=== PATIENT | male | born 1955 | race Caucasian/White ===

== ENCOUNTER → 2018-03-25 | Outpatient (CLI) | payer OTHER ==
[~2018-03-25] MED LIST: CLC150 PO; TOPICAL STEROID
--- NOTE | 2018-03-25 12:22 | DIAGNOSTIC IMAGING REPORT ---
ABDOMINAL ULTRASOUND, RIGHT UPPER QUADRANT HISTORY: Generalized abdominal pain.. COMPARISON: None. FINDINGS: Pancreas: The pancreatic tail is obscured by overlying bowel gas. The remaining portions of the pancreas are within normal limits. Liver: A 6 mm cyst within the right hepatic lobe. A 3.2 x 1.9 x 1.7 cm hyperechoic lesion within the right hepatic lobe. Slight increase echogenicity within the liver consistent with mild fatty change. Gallbladder: No gallbladder wall thickening. No gallstones. A few punctate echogenic foci within the gallbladder fundus demonstrating ringdown artifact. This is consistent with adenomyomatosis. CBD: 5 mm. Right kidney: No hydronephrosis. Scarring within the lower pole. IMPRESSION: 1. Adenomyomatosis of the gallbladder fundus. Otherwise, no gallbladder wall thickening. No gallstones. 2. A 3.2 x 1.9 x 1.7 cm hyperechoic lesion within the right hepatic lobe. This is technically indeterminate by ultrasound but likely represents a hemangioma. Electronically signed by: Brian Gonzalez M.D. 03/25/2018 12:21 PM Dictated Date/Time: 03/25/2018 12:19 PM
== END | disposition home or self-care (01) ==
LOC: C.ULTRBC 11:37
PROVIDERS: ATTEND Family Medicine
DX: R10.9 Unspecified abdominal pain (principal)

== ENCOUNTER 2020-10-29 08:31 | Inpatient (IN) ==
--- OUTSIDE RECORDS SUMMARY | 2020-10-29 08:33 | External Medical Summary | Continuity of Care Document ---
:1955 Author Name Luis Fernando Fisher, Provider Address Unavailable Unavailable , Care Team Providers Name Role Phone Allen Shearer [email or web address] Problems Active medical history not documented Allergies and Adverse Reactions Allergy history not documented Medications Medications not documented Procedures Procedures not documented Immunizations Immunizations not documented Plan of Treatment Planned Observations Planned Goals not documented Results No Known Results Results not documented Encounters Appointment; Allen Shearer M.D. 02-Aug-2009 11:40 Encounter Diagnosis: Problem not documented
--- OUTSIDE RECORDS SUMMARY | 2020-10-29 08:34 | External Medical Summary | Continuity of Care Document ---
:1955 Author Name Luis Fernando Fisher, Provider Address Unavailable Unavailable , Care Team Providers Name Role Phone Allen Shearer [email or web address] Problems Active medical history not documented Allergies and Adverse Reactions Allergy history not documented Medications Medications not documented Procedures Procedures not documented Immunizations Immunizations not documented Plan of Treatment Planned Observations Planned Goals not documented Results No Known Results Results not documented Encounters Appointment; Allen Shearer M.D. 02-Aug-2009 11:40 Encounter Diagnosis: Problem not documented
--- NOTE | 2020-10-29 09:01 | Emergency Department Note ---
History of Present Illness General Chief complaint: Shortness of Breath/Dyspnea Stated complaint: SOB, CHEST PAIN Time Seen by Provider: 10/29/20 08:42 Source: patient Mode of arrival: ambulatory Limitations: no limitations History of Present Illness This patient comes in with shortness of breath and some chest heaviness. 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 His shortness of breath is primarily at night he says he wakes up short of breath and and then he will reposition self and feels better. This is been going on f or quite some time but has gotten worse. He has had a chronic cough that seems deeper and less productive than it usually was although today he coughed up some greenish-hawley stuff at one point. He has had 2 doses of the Covid vaccine with the second dose 10 days ago. He said after the second dose he did have flulike symptoms for 2 days but that is resolved. He denies any palpitations or syncope but felt a little wobbly. No chest pain but does feel heavy he says that been going on for a long time. No blood or melena stool no focal numbness or weakness except for feeling slightly weak in both his legs no acute pain or swelling. No trauma or abdominal pain. Home Medications Medication Instructions Recorded Confirmed Type aspirin 81 mg PO DAILY 10/29/20 10/29/20 History atorvastatin 10 mg PO HS 10/29/20 10/29/20 History cyanocobalamin (vitamin B-12) 1,000 mcg PO DAILY 10/29/20 10/29/20 History [Vitamin B-12] magnesium 250 mg PO DAILY 10/29/20 10/29/20 History multivitamin 1 tab PO QAM 10/29/20 10/29/20 History omega 5-rvt-mkv-fish oil [Fish Oil] 1 cap PO DAILY 10/29/20 10/29/20 History ustekinumab [Stelara] 90 mg SUBCUT .Q12WK 10/29/20 10/29/20 History vitamin B complex 1 tab PO DAILY 10/29/20 10/29/20 History Allergies Allergy/AdvReac Type Severity Reaction Status Date / Time bee venom protein (honey bee) Allergy Swelling Unverified 10/29/20 09:40 Penicillins Allergy Rash 40+ Unverified 10/29/20 09:40 years ago Past Med/Surg History Medical History (Updated 10/29/20 @ 15:03 by Pj Ornelas MD) Hyperlipidemia Hypertension Leg cramps Psoriasis On Stelara since 2016 Surgical History (Updated 10/29/20 @ 11:02 by Rc Gibson MD) History of appendectomy Social History (Updated 10/29/20 @ 11:03 by Rc Gibson MD) Smoking Status: Former smoker Age Quit Using Tobacco: 59; packs per day: 0.2; Hx Alcohol Use: No Hx Substance Use: No Preferred Language: Khmer Communication Ability: Effective 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 Review of Systems A total of 10 systems reviewed and were otherwise negative Physical Exam Vital Signs Vital Signs - 24 hr 10/29/20 08:36 10/29/20 08:54 10/29/20 09:04 Temperature 36.8 C Temperature Source Temporal Artery Scan Pulse Rate 88 Pulse Rate [Finger] 69 Pulse Rate from SpO2 Sensor Respiratory Rate 20 18 Respiratory Effort / Characteristics Non-Labored Non-Labored Non-Labored Respiratory Depth Normal Normal Respiratory Pattern Regular Blood Pressure 166/131 H Blood Pressure [Right Arm] 178/102 H Blood Pressure Mean 142 Blood Pressure Mean [Right Arm] 127 Blood Pressure Position Sitting Pulse Oximetry 95 96 95 Oxygen Delivery Method Room Air Room Air Room Air Sepsis Recent Fever Within 48 Hours No Sepsis New/Unexplained Change in Mental Status No Sepsis Action Taken by Nursing No Action Required 10/29/20 09:43 10/29/20 11:07 10/29/20 11:12 Temperature Temperature Source Pulse Rate 69 Pulse Rate [Finger] 69 Pulse Rate from SpO2 Sensor 73 Respiratory Rate 16 22 Respiratory Effort / Characteristics Respiratory Depth Respiratory Pattern Blood Pressure 212/147 H Blood Pressure [Right Arm] 147/99 H 203/134 H Blood Pressure Mean 168 Blood Pressure Mean [Right Arm] 115 157 Blood Pressure Position Pulse Oximetry 94 96 Oxygen Delivery Method Sepsis Recent Fever Within 48 Hours Sepsis New/Unexplained Change in Mental Status Sepsis Action Taken by Nursing General: Well developed well nourished middle-age male who appears in no acute distress, breathing comfortably on room air. Normal speech HEENT: Normal cephalic atraumatic. Pupils are equal round and reactive to light. Extraocular movements are intact. Oropharynx is pink with moist mucous membranes. No swelling of the mouth lips or tongue. Neck: Supple with a midline trachea. No meningeal signs or stiffness, no JVD or bruits. No Stridor. Chest: Clear to auscultation bilaterally. No wheezes or rhonchi. No increased work of breathing. Heart: Regular rate and rhythm without murmurs or gallops. Abdomen: Soft nontender, nondistended without rebound guarding or rigidity. Extremities: No cyanosis clubbing or edema. No calf tenderness or assymetry Spine/Back. Non tender to palpation. No CVA tenderness Skin: Good turgor without rashes. Neurologic exam: Cranial nerves two through 12 are intact. Motor and sensation are intact and symmetrical throughout. Course Administered Medications Discontinued Medications Aspirin (Aspirin Chew 324 Mg) Confirm Administered Dose 324 mg .ROUTE .STK-MED ONE Stop: 10/29/20 13:55 Last Admin: 10/29/20 14:04 Dose: 324 mg Documented by: [id number] Carvedilol (Carvedilol 3.125 Mg Tab) Confirm Administered Dose 3.125 mg .ROUTE .STK-MED ONE Stop: 10/29/20 13:55 Last Admin: 10/29/20 14:08 Dose: 3.125 mg Documented by: [id number] Furosemide (Furosemide 40 Mg/4 Ml Vial) 2 mg IV NOW STA Stop: 10/29/20 13:23 Last Admin: 10/29/20 14:28 Dose: Not Given Documented by: [id number] Furosemide (Furosemide 40 Mg/4 Ml Vial) Confirm Administered Dose 40 mg IV .STK- MED ONE Stop: 10/29/20 13:56 Last Admin: 10/29/20 14:08 Dose: 20 mg Documented by: [id number] Heparin Sodium (Porcine) (Heparin Sod (Porcine) 1000 Unit/Ml 10 Ml Vial) Confirm Administered Dose 10,000 units .ROUTE .STK-MED ONE Stop: 10/29/20 13:56 Last Admin: 10/29/20 14:06 Dose: 4,000 units Documented by: [id number] Cosigned by: [id number] Heparin Sodium/Dextrose (Heparin 19007 Unit/500 Ml D5w) Confirm Administered Dose 25,000 units IV .STK-MED ONE Stop: 10/29/20 13:55 Last Admin: 10/29/20 14:05 Dose: 1,000 units Documented by: [id number] Cosigned by: [id number] Magnesium Sulfate/Dextrose (Magnesium Sulfate / D5w) 1 gm in 100 mls @ 100 mls/hr IV NOW STA Stop: 10/29/20 11:08 Last Infusion: 10/29/20 11:17 Dose: 0 mls/hr Documented by: [id number] Admin: 10/29/20 10:16 Dose: 100 mls/hr Documented by: [id number] Ioversol (Optiray 320 125ml) 120 ml IV ONCE ONE Stop: 10/29/20 11:44 Last Admin: 10/29/20 11:43 Dose: 120 ml Documented by: [id number] Medical Decision Making Differential Diagnosis Acute coronary syndrome, arrhythmia, PE, CHF, pneumonia, bronchitis, sepsis, Covid, electrolyte or metabolic abnormality, GERD, anxiety Medical Records Attestation: I reviewed the patient's medical records. Home Medications Current Medication List: was personally reviewed by me Laboratory Data Attestation: I reviewed the patient's lab results. Result diagrams: 10/29/20 09:00 10/29/20 09:00 Lab Results 10/29/20 10/29/20 10/29/20 Range/Units 09:00 09:00 09:00 WBC 10.65 (4.8-10.8) K/uL RBC 5.44 (4.7-6.1) M/uL Hgb 16.2 (14.0-18.0) g/dL Hct 46.0 (42-52) % MCV 84.6 (80-100) fL MCH 29.8 (25-34) pg MCHC 35.2 (32-36) g/dL RDW Std Deviation 41.5 (36.4-46.3) fL RDW Coeff of Jamshid 13.5 (11.5-14.5) % Plt Count 288 (130-400) K/uL MPV 10.5 H (7.4-10.4) fL Immature Gran % (Auto) 0.2 % Neut % (Auto) 62.6 % Lymph % (Auto) 27.3 % [place] % (Auto) 7.0 % Eos % (Auto) 2.4 % Baso % (Auto) 0.5 % Neut # (Auto) 6.66 H (1.4-6.5) K/uL Lymph # (Auto) 2.91 (1.2-3.4) K/uL [place] # (Auto) 0.75 H (0.11-0.59) K/uL Eos # (Auto) 0.26 (0-0.5) K/uL Baso # (Auto) 0.05 (0-0.2) K/uL Immature Gran # (Auto) 0.02 (0.00-0.02) K/uL PT (9.0-12.0) Seconds INR (0.9-1.1) APTT (21.0-31.0) Seconds PTT Ratio D-Dimer 550 H* (0-500) ug/L FEU Sodium 140 (136-145) mmol/L Potassium 4.2 (3.5-5.1) mmol/L Chloride 109 H (98-107) mmol/L Carbon Dioxide 22 (21-32) mmol/L Anion Gap 9.0 (3-11) BUN 23 H (7-18) mg/dl Creatinine 1.18 (0.6-1.4) mg/dl Est Cr Clr Drug Dosing 89.5 ml/min Est GFR ( Amer) 74.1 Est GFR (Non-Af Amer) 63.9 BUN/Creatinine Ratio 19.2 (10-20) Glucose 153 H (70-99) mg/dl Calcium 8.7 (8.5-10.1) mg/dl Magnesium (1.8-2.4) mg/dl Total Bilirubin 2.0 H (0.2-1) mg/dl AST 15 (15-37) U/L ALT 30 (12-78) U/L Alkaline Phosphatase 57 (45-117) U/L Troponin I 0.060 H* (0-0.045) ng/ml NT-Pro-B Natriuret Pep 2378 H (0-900) pg/ml Total Protein 7.8 (6.4-8.2) gm/dl Albumin 3.8 (3.4-5.0) gm/dl Globulin 4.0 (2.5-4.0) gm/dl Albumin/Globulin Ratio 1.0 (0.9-2) Lipase 80 (73-393) U/L TSH (0.300-4.500) uIu/ml COVID-19 Eval Order SARS-CoV-2, RNA, NAAT (NEGATIVE) 10/29/20 10/29/20 10/29/20 Range/Units 09:00 09:32 11:08 WBC (4.8-10.8) K/uL RBC (4.7-6.1) M/uL Hgb (14.0-18.0) g/dL Hct (42-52) % MCV (80-100) fL MCH (25-34) pg MCHC (32-36) g/dL RDW Std Deviation (36.4-46.3) fL RDW Coeff of Jamshid (11.5-14.5) % Plt Count (130-400) K/uL MPV (7.4-10.4) fL Immature Gran % (Auto) % Neut % (Auto) % Lymph % (Auto) % [place] % (Auto) % Eos % (Auto) % Baso % (Auto) % Neut # (Auto) (1.4-6.5) K/uL Lymph # (Auto) (1.2-3.4) K/uL [place] # (Auto) (0.11-0.59) K/uL Eos # (Auto) (0-0.5) K/uL Baso # (Auto) (0-0.2) K/uL Immature Gran # (Auto) (0.00-0.02) K/uL PT 11.1 (9.0-12.0) Seconds INR 1.1 (0.9-1.1) APTT 24.5 (21.0-31.0) Seconds PTT Ratio 0.9 D-Dimer (0-500) ug/L FEU Sodium (136-145) mmol/L Potassium (3.5-5.1) mmol/L Chloride (98-107) mmol/L Carbon Dioxide (21-32) mmol/L Anion Gap (3-11) BUN (7-18) mg/dl Creatinine (0.6-1.4) mg/dl Est Cr Clr Drug Dosing ml/min Est GFR ( Amer) Est GFR (Non-Af Amer) BUN/Creatinine Ratio (10-20) Glucose (70-99) mg/dl Calcium (8.5-10.1) mg/dl Magnesium 2.2 (1.8-2.4) mg/dl Total Bilirubin (0.2-1) mg/dl AST (15-37) U/L ALT (12-78) U/L Alkaline Phosphatase (45-117) U/L Troponin I 0.068 H* (0-0.045) ng/ml NT-Pro-B Natriuret Pep (0-900) pg/ml Total Protein (6.4-8.2) gm/dl Albumin (3.4-5.0) gm/dl Globulin (2.5-4.0) gm/dl Albumin/Globulin Ratio (0.9-2) Lipase (73-393) U/L TSH (0.300-4.500) uIu/ml COVID-19 Eval Order SARS-CoV-2, RNA, NAAT (NEGATIVE) 10/29/20 10/29/20 10/29/20 Range/Units 11:08 11:10 11:10 WBC (4.8-10.8) K/uL RBC (4.7-6.1) M/uL Hgb (14.0-18.0) g/dL Hct (42-52) % MCV (80-100) fL MCH (25-34) pg MCHC (32-36) g/dL RDW Std Deviation (36.4-46.3) fL RDW Coeff of Jamshid (11.5-14.5) % Plt Count (130-400) K/uL MPV (7.4-10.4) fL Immature Gran % (Auto) % Neut % (Auto) % Lymph % (Auto) % [place] % (Auto) % Eos % (Auto) % Baso % (Auto) % Neut # (Auto) (1.4-6.5) K/uL Lymph # (Auto) (1.2-3.4) K/uL [place] # (Auto) (0.11-0.59) K/uL Eos # (Auto) (0-0.5) K/uL Baso # (Auto) (0-0.2) K/uL Immature Gran # (Auto) (0.00-0.02) K/uL PT (9.0-12.0) Seconds INR (0.9-1.1) APTT (21.0-31.0) Seconds PTT Ratio D-Dimer (0-500) ug/L FEU Sodium (136-145) mmol/L Potassium (3.5-5.1) mmol/L Chloride (98-107) mmol/L Carbon Dioxide (21-32) mmol/L Anion Gap (3-11) BUN (7-18) mg/dl Creatinine (0.6-1.4) mg/dl Est Cr Clr Drug Dosing ml/min Est GFR ( Amer) Est GFR (Non-Af Amer) BUN/Creatinine Ratio (10-20) Glucose (70-99) mg/dl Calcium (8.5-10.1) mg/dl Magnesium (1.8-2.4) mg/dl Total Bilirubin (0.2-1) mg/dl AST (15-37) U/L ALT (12-78) U/L Alkaline Phosphatase (45-117) U/L Troponin I (0-0.045) ng/ml NT-Pro-B Natriuret Pep (0-900) pg/ml Total Protein (6.4-8.2) gm/dl Albumin (3.4-5.0) gm/dl Globulin (2.5-4.0) gm/dl Albumin/Globulin Ratio (0.9-2) Lipase (73-393) U/L TSH 0.890 (0.300-4.500) uIu/ml COVID-19 Eval Order Covid19 IDNow [facility] SARS-CoV-2, RNA, NAAT NEGATIVE (NEGATIVE) Imaging Data Attestation: I personally reviewed and interpreted this imaging study as follows: My Impression: Chest x-raycardiomegaly but no acute infiltrate, failure, pneumothorax seen Radiologist's Impression: XR chest 1V portable CLINICAL HISTORY: Atypical chest pain. COMPARISON STUDY: No previous studies for comparison. FINDINGS: Lung volumes are normal. There is no pneumothorax or pleural effusion. There is no consolidation or evidence for pulmonary edema. Mild cardiomegaly is noted. IMPRESSION: No acute cardiopulmonary findings. Mild cardiomegaly. CT ANGIOGRAPHY OF THE CHEST, PULMONARY EMBOLUS PROTOCOL CLINICAL HISTORY: Cough. Shortness of breath. COMPARISON STUDY: Chest radiograph October 29, 2020 at 9:31 AM. TECHNIQUE: Following IV administration of 120 mL of Optiray-320, helical axial images of the chest were obtained utilizing the pulmonary embolus protocol. Maximal intensity projections and sagittal and coronal reformats were viewed on an independent 3D workstation. IV contrast was administered without complication. Automated exposure control was utilized for the study. A dose lowering technique was utilized adhering to the principles of ALARA. CT DOSE: 964.39 mGy.cm FINDINGS: No pulmonary emboli are identified although the segmental and subsegmental pulmonary arteries within the lower lobes are suboptimally assessed opacified on this exam. Mild to moderate cardiomegaly is noted. There is no pericardial effusion. There is no pneumothorax. There are small bilateral pleural effusions. Interlobular septal thickening is noted. There is mild bronchial wall thickening. There is no consolidation to suggest pneumonia. Central airways are patent. There are several mildly enlarged mediastinal lymph nodes. Index subcarinal lymph node measures 1.3 cm in short axis diameter. No prominent bilateral hilar lymph nodes. No suspicious lesions or acute fractures are identified within visualized portions of the bony thorax. IMPRESSION: 1. No pulmonary emboli identified although segmental and subsegmental lower lobe pulmonary arteries suboptimally assessed on this exam. 2. Cardiomegaly with interstitial pulmonary edema. Small bilateral pleural effusions. 2. Several mildly enlarged mediastinal lymph nodes and prominent bilateral hilar lymph nodes. These are nonspecific but may be related to pulmonary edema. ECG Data Attestation: I personally reviewed and interpreted this ECG as follows: Indication: + SOB/dyspnea Rate (beats per minute): 90 Rhythm: + normal sinus ECG Intervals/blocks: + Normal QRS, + Prolonged QT and + Normal ND ECG Duff: + Normal ECG ST segments: + Nonspecific ST abnormalities ECG Findings: + PVCs (Frequent PVCs with some consecutive PVCs) Comparison ECG Date: no prior available Additional Comments: EKG #2. Normal sinus rhythm with frequent PVCs. The T wave now has nonspecific changes and QT interval slightly decreased compared to EKG #1 MDM Narrative This patient comes in after having a chronic cough that is gotten worse as well as waking up short of breath at night he is also had some chest pressure a lot of this sounds like is been going on chronically but has gotten worse. His initial blood pressure in triage was elevated however the rest of his vital signs are normal. He looks well at present and has minimal symptoms. IV access was established, chest x-ray ,EKG and multiple blood testing was obtained. I do not think Covid is likely as he has had both vaccines and that ut has been 10 days. His EKG does not show any definite ischemic changes however he does have frequent ectopy, including several ectopic beats in a row. Chest x-ray shows cardiomegaly but no overt CHF. His troponin was elevated. He does have a prolonged QT and given his ectopy, I did give him magnesium 1 g IV. His serum mag did come back at 2.2. With his elevated troponin and his ectopy I do think he needs to be admitted for further cardiac evaluation and monitoring. We also did do a CTA of his chest and there is no evidence of PE. This was done given his symptoms and the fact that his D-dimer was mildly elevated at 550. I have consulted the [facility] hospitalist to see him in the ER for these measures. Continuous cardiac monitoring: An order was placed in EMR for continuous cardiac monitoring. The patient was noted to be in normal sinus rhythm with a pulse of 85 and frequent ectopy. Impression & Plan Chest pain, Elevated troponin, Ventricular ectopy, Prolonged Q-T interval on ECG Discharge Plan Visit Data Chief Complaint: Shortness of Breath/Dyspnea Stated Complaint: SOB, CHEST PAIN ED Provider: Pj Ornelas Discharge Problem: Chest pain, Elevated troponin, Ventricular ectopy, Prolonged Q-T interval on ECG Patient Disposition: Admitted As Inpatient Discharge Instructions Interventions: ED Discharge Assessment Last Done: 10/29/20 14:28 Discharge Problem: Chest pain Qualifiers: Chest pain type: precordial pain Qualified Code(s): R07.2 - Precordial pain
[2020-10-29 09:09] LABS: Basophils # (auto) 0.05 K/uL (0-0.2); Basophils % (auto) 0.5 %; Eosinophils # (auto) 0.26 K/uL (0-0.5); Eosinophils % (auto) 2.4 %; Hemoglobin 16.2 g/dL (14.0-18.0); Immature Granulocytes # (auto) 0.02 K/uL (0.00-0.02); Immature Granulocytes % (auto) 0.2 %; Lymphocytes # (auto) 2.91 K/uL (1.2-3.4); Lymphocytes % (auto) 27.3 %; Mean Corpuscular Hemoglobin 29.8 pg (25-34); Mean Corpuscular Hgb Conc 35.2 g/dL (32-36); Mean Corpuscular Volume 84.6 fL (80-100); Mean Platelet Volume 10.5 fL (7.4-10.4); Monocytes # (auto) 0.75 K/uL (0.11-0.59); Neutrophils # (auto) 6.66 K/uL (1.4-6.5); Neutrophils % (auto) 62.6 %; Platelet Count 288 K/uL (130-400); RDW Coefficient of Variation 13.5 % (11.5-14.5); RDW Standard Deviation 41.5 fL (36.4-46.3); Red Blood Count 5.44 M/uL (4.7-6.1); White Blood Count 10.65 K/uL (4.8-10.8)
[2020-10-29 09:27] LABS: Albumin Level 3.8 gm/dl (3.4-5.0); BUN Creatinine Ratio 19.2 (10-20); Calcium 8.7 mg/dl (8.5-10.1); Creatinine Clr Calc Pharmacy 89.5 ml/min; Est GFR (African American) 74.1; Est GFR (Non-African American) 63.9; Potassium 4.2 mmol/L (3.5-5.1)
[2020-10-29 09:50] LABS: Total Protein 7.8 gm/dl (6.4-8.2); Troponin I 0.06 ng/ml (0-0.045)
--- NOTE | 2020-10-29 09:56 | XRay Report ---
XR chest 1V portable CLINICAL HISTORY: Atypical chest pain. COMPARISON STUDY: No previous studies for comparison. FINDINGS: Lung volumes are normal. There is no pneumothorax or pleural effusion. There is no consolid ation or evidence for pulmonary edema. Mild cardiomegaly is noted. IMPRESSION: No acute cardiopulmonary findings. Mild cardiomegaly. ACT 112: Negative or not required by law. Electronically signed by: Danie Moyer M.D. 10/29/2020 9:55 AM
[2020-10-29] MEDS ORDERED: MAGNESIUM SULFATE / D5W 1 GM/100 ML BAG IV STA (10:09)
[2020-10-29 10:20] LABS: D Dimer 550 ug/L FEU (0-500)
--- NOTE | 2020-10-29 10:51 | History & Physical Report ---
Date of Service October 29, 2020 Assessment & Plan (1) NSVT (nonsustained ventricular tachycardia): 4 beat run in ER with frequent PVCs ? Symptomatic with palpitations, chest heaviness and shortness of breath. No syncope or presyncope. TTE Trend troponin Lipid panel and HbA1c with a.m. labs Magnesium level pending. Potassium 4.2. Observe on telemetry due to concurrent elevated troponin with nonspecific T wave abnormalities in lateral leads. Consult cardiology (2) Atypical chest pain: Elevated D-dimer with chest pain worse on inspiration. CT for PE to rule this out. Elevated troponin therefore trend this overnight. Repeat troponin and TTE now to assess need for acute coronary syndrome treatment. (3) Shortness of breath: As above for chest pain (4) Elevated troponin: As above (5) Hyperlipidemia: Continue atorvastatin 10 mg p.o. at bedtime (6) Psoriasis: Continue Stelara as an outpatient. (7) DVT prophylaxis: SCDs pending negative CT for PE as above. 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 Unclear exact history as he has had some degree of shortness of breath, cough and chest heaviness for many years which she is put down to his prior smoking history. However, he notes increasing shortness of breath especially at night or on lying flat getting progressively worse over the last month. Associated chest heaviness for the last 2 weeks also getting progressively worse to the point where it is now interrupting his sleep. Usually he waits while and is able to get back to sleep however this morning his breathing was much worse while lying down with associated palpitations therefore his recommended he goes to the ER. He has been concerned about Covid and checks his O2 sats regularly over the last week which have been normal. He routinely works out at the [facility] for around 30 minutes of cardio training - last went 5 days ago without any worsening of his chest heaviness or shortness of breath, he feels what ever shortness of breath he does have is related to wearing a mask. He notes possible history of QT prolongation on a routine EKG taken as part of his snf physical however he was not started on any treatment for this. Notably received Moderna vaccine with low-grade temperature and generalized fatigue after the second dose 10 days ago. Allergies Allergy/AdvReac Type Severity Reaction Status Date / Time bee venom protein (honey bee) Allergy Swelling Unverified 10/29/20 09:40 Penicillins Allergy Rash 40+ Unverified 10/29/20 09:40 years ago Home Medications Medication Instructions Recorded Confirmed Type aspirin 81 mg PO DAILY 10/29/20 10/29/20 History atorvastatin 10 mg PO HS 10/29/20 10/29/20 History cyanocobalamin (vitamin B-12) 1,000 mcg PO DAILY 10/29/20 10/29/20 History [Vitamin B-12] magnesium 250 mg PO DAILY 10/29/20 10/29/20 History multivitamin 1 tab PO QAM 10/29/20 10/29/20 History omega 8-onu-lrf-fish oil [Fish Oil] 1 cap PO DAILY 10/29/20 10/29/20 History ustekinumab [Stelara] 90 mg SUBCUT .Q12WK 10/29/20 10/29/20 History vitamin B complex 1 tab PO DAILY 10/29/20 10/29/20 History Past Med/Surg History Medical History Hyperlipidemia Hypertension Leg cramps Psoriasis On Stelara since 2016 Surgical History History of appendectomy Social History Smoking Status: Former smoker Age Quit Using Tobacco: 59; packs per day: 0.2; Hx Alcohol Use: No Hx Substance Use: No Preferred Language: Sammarinese Communication Ability: Effective Test And Turn Up Technician Required: No Beliefs That Will Affect Care: None Current Living Situation: Spouse Feels Safe at Home: Yes Assistive Devices: None Review of Systems Review of Systems: All systems reviewed & are unremarkable except as noted in HPI & below Physical Exam Constitutional: WD/WN, vitals as above + obese Eyes: + anicteric sclerae; normal pupil size ENMT: external ear and nose normal, oropharynx normal Neck: trachea midline, no thyromegaly Respiratory: normal respiratory effort; no respiratory distress Auscult ation: + crackles (Bibasal fine); no wheezes Cardiovascular: Rate/Rhythm: regular rate and regular rhythm (Frequent skipped beats) Heart Sounds: no murmur Vessels: no JVD Extremities: normal capillary refill and + pedal edema (Trace ankles bilaterally); no calf tenderness Gastrointestinal (Abdomen): normal bowel sounds, soft, nontender, no hepatosplenomegaly Musculoskeletal: no cyanosis or clubbing, extremities motor strength 5/5 Skin: no rashes, warm and dry Neurologic: moves all extremities and awake; not confused Psychiatric: A+Ox3, euthymic affect Results & Data Results & Data ([facility]) Vital Signs (Past 12 Hours) Vital Signs Temp Pulse Pulse Resp BP BP Pulse Ox 10/29/20 09:43 69 16 147/99 H 94 10/29/20 09:04 69 18 178/102 H 95 10/29/20 08:54 96 10/29/20 08:36 36.8 C 88 20 166/131 H 95 Diagnostic Findings XR chest 1V portable IMPRESSION: No acute cardiopulmonary findings. Mild cardiomegaly. Medications Administered ER medications given: Magnesium sulfate 1 g IV ECG Indication: chest pain Rate (beats per minute): 69 Rhythm: normal sinus Findings: + other (T wave flattening in lateral leads) and + PVC (Multiple with different morphologies with 6 beat run of ventricular tachycardia) Comparison ECG Date: no prior available Additional Comments: Repeat EKG showing T wave flattening throughout without ST changes. Frequent but less PVCs than previous EKG. Code Status & VTE Plan Code Status Full VTE Prophylaxis Plan VTE Prophylaxis will be ordered: Yes PG Care Time/CCT Total # of Minutes Spent Total Time Spent with Patient: Total time spent is greater than 50% in coordination of care (as documented) at patient's floor/unit and/or counseling patient: Coding Level of Care Code 83839 OBS Care - Level 3 Diagnoses NSVT (nonsustained ventricular tachycardia) I47.2 Atypical chest pain R07.89 Shortness of breath R06.02 Elevated troponin R77.8 Hyperlipidemia E78.5 Psoriasis L40.9 DVT prophylaxis Z29.9
[2020-10-29 11:10] LABS: INR 1.1 (0.9-1.1); Partial Thromboplastin Ratio 0.9; Partial Thromboplastin Time 24.5 Seconds (21.0-31.0); Prothrombin Time 11.1 Seconds (9.0-12.0)
[2020-10-29] MEDS ORDERED: OPTIRAY 320 125ml IV ONE (11:43)
--- NOTE | 2020-10-29 12:11 | CT Scan Report ---
CT ANGIOGRAPHY OF THE CHEST, PULMONARY EMBOLUS PROTOCOL CLINICAL HISTORY: Cough. Shortness of breath. COMPARISON STUDY: Chest radiograph October 29, 2020 at 9:31 AM. TECHNIQUE: Following IV administration of 120 mL of Optiray-320, helical axial images of the chest we re obtained utilizing the pulmonary embolus protocol. Maximal intensity projections and sagittal and coronal reformats were viewed on an independent 3D workstation. IV contrast was administered withou t complication. Automated exposure control was utilized for the study. A dose lowering technique wa s utilized adhering to the principles of ALARA. CT DOSE: 964.39 mGy.cm FINDINGS: No pulmonary emboli are identified although the segmental and subsegmental pulmonary arter ies within the lower lobes are suboptimally assessed opacified on this exam. Mild to moderate cardiom egaly is noted. There is no pericardial effusion. There is no pneumothorax. There are small bilateral pleural effusions. Interlobular septal thickening is noted. There is mild bronchial wall thickening. There is no consolidation to suggest pneumonia. Central airways are patent. There are several mildly enlarged mediastinal lymph nodes. Index subcarinal lymph node measures 1.3 cm in short axis diameter . No prominent bilateral hilar lymph nodes. No suspicious lesions or acute fractures are identified w ithin visualized portions of the bony thorax. IMPRESSION: 1. No pulmonary emboli identified although segmental and subsegmental lower lobe pulmonary arteries s uboptimally assessed on this exam. 2. Cardiomegaly with interstitial pulmonary edema. Small bilateral pleural effusions. 2. Several mildly enlarged mediastinal lymph nodes and prominent bilateral hilar lymph nodes. These a re nonspecific but may be related to pulmonary edema. ACT 112: Negative or not required by law. Electronically signed by: Danie Moyer M.D. 10/29/2020 12:10 PM
[2020-10-29] MEDS ORDERED: ASPIRIN CHEW 324 MG PO STA (13:19)
[2020-10-29] MEDS ORDERED: FUROSEMIDE 40 MG/4 ML VIAL IV STA ×2 (13:22)
--- NOTE | 2020-10-29 13:38 | Pre Anesthesia Assessment ---
Date of Service October 29, 2020 Pre Sedation Assessment Vital Signs Temp Pulse Pulse Resp BP BP Pulse Ox 10/29/20 12:01 65 13 168/117 H 96 10/29/20 11:32 75 24 138/107 H 95 10/29/20 11:12 203/134 H 10/29/20 11:07 69 22 212/147 H 96 10/29/20 09:43 69 16 147/99 H 94 10/29/20 09:04 69 18 178/102 H 95 10/29/20 08:54 96 10/29/20 08:36 36.8 C 88 20 166/131 H 95 Cardiovascular + regular rate Respiratory normal respiratory effort, lungs clear to auscultation Pre-Sedation Airway Assessment Smoking Status: Former smoker Mallampati Class: II ASA: ASA3 NPO Status Date of Last Intake of Fluids: 10/29/20 Time of Last Intake of Fluids: 06:00 Date of Last Intake of Solid Food: 10/28/20 Time of Last Intake of Solid Foods: 20:00 Procedure Planning Contraindications for Sedation: none Current Medications Reviewed: Yes Notes The planned sedation has been discussed with the patient. Informed Consent was obtained. I have identified the patient, determined the appropriateness of sedation and have assessed the patient immediately prior to the procedure. All medicine(s) and interventions are by my order.
--- NOTE | 2020-10-29 13:51 | Cardiology Consultation ---
Date of Consultation October 29, 2020 Assessment & Plan (1) Acute coronary syndrome: (2) Cardiomyopathy: (3) NSVT (nonsustained ventricular tachycardia): (4) Hyperlipidemia: (5) Hypertension: (6) Acute systolic CHF (congestive heart failure): ASSESSMENT/PLAN: 1. Acute coronary syndrome: Symptoms concerning for crescendo angina with acute coronary syndrome this morning. Reduced LV systolic function noted on echo. Currently chest pain-free. Recommend full-dose aspirin, heparin drip, beta- magdiel, blood pressure control, high-intensity statin therapy. Recommended cardiac catheterization. Risks and benefits were discussed with him in detail. He was made aware that CT surgery is not available at this facility. Offered to discuss this with his as well but he prefers to do this via telephone himself. Catheterization is not emergent as he is currently angina free. 2. Cardiomyopathy: Presumably ischemic based on presentation. Starting carvedilol now. Would recommend Entresto vs lisinopril as well. Will start with lisinopril today but if LV systolic function remains reduced despite revascularization, if indicated, would then advocate for Entresto in place of EVELIN-inhibitor. Mildly hypervolemic on exam. Will likely evaluate filling pressures during cardiac catheterization. 3. Nonsustained ventricular tachycardia: Beta-magdiel as noted. Ischemic evaluation as above. 4. Hypertension: Blood pressure uncontrolled. Starting carvedilol. Recommend diuretic. Will start lisinopril given above cardiac issues. 5. Dyslipidemia: Recommend high-intensity statin therapy. 6. Acute systolic CHF: He appears mildly hypervolemic. Recommend dose of Lasix now. Low-sodium diet. Daily weights. Strict I&Os. 7. Disposition: Cardiology will continue to follow. Plan of care discussed with Dr. Gibson of the primary hospitalist service. Thank you for allowing me to participate in the care of your patient. Please call for any other questions or concerns. Sincerely, Cole Rea M.D. History of Present Illness Reason for Consultation: Frequent PVCs, shortness of breath, chest pain, nonsustained ventricular tachycardia Requesting Physician: Dr. Gibson Attending Physician: Dr. Gibson History of Present Illness Mr. Zaman is a very pleasant 65-year-old gentleman with a history significant for hypertension, dyslipidemia, and psoriasis. He presented to [facility] on 10/29/2020 due to chest discomfort and shortness of breath. He has had chest pain chronically for several years occurring intermittently but the chest pain has been different over the past month. Over the past 1 month, he has been having increasingly worsening and more significant chest discomfort described as a buzzing sensation throughout his chest and dyspnea with exertion. Symptoms only occur with exertion. He continued to exercise 5-6 days per week for 30 minutes at a time including a recumbent bicycle. He would notice the symptoms while exercising but was able to work through them and continue with his workout. He had been exercising more strenuously prior to the COVID-19 pandemic (spin classes). Today however his symptoms change. With light exertion around his home, he had worsening chest discomfort and shortness of breath. Symptoms resolved with rest. He called his PCP who urged him to seek a emergency department care. He is currently chest pain-free and denies shortness of breath. He has noted however that he has been experiencing paroxysmal nocturnal dyspnea over the past several weeks. He would wake up in the middle the night short of breath which would improve with repositioning or after sitting upright briefly. He denies orthopnea when first getting in the bed. He has chronic ankle swelling without any significant worsening recently. He has a chronic cough for years. He has received his second COVID-19 vaccine approximately 10 days ago. He felt unwell 2 days following and more significantly ill the third day but the symptoms have since resolved. He has not had any recent fever. No reported syncope, palpitations, or bleeding. At home, he watches his heart rate and oxygen saturation with a pulse oximeter. His heart rate is typically in the 60s but he has noted at times that his heart rate would increase into the mid 70s and he would feel this. While here, he was noted have PVCs and short runs of nonsustained ventricular tachycardia. His initial troponin was 0.06 and then increased to 0.068. He underwent CTA chest which was negative for PE. Review of systems: As above. Review of systems otherwise negative/unremarkable. Family history: No known premature CAD. Social history: He quit smoking in 2018. Previously, he had smoked 1 pack per day for 10 years, quit briefly and then 0.5 pack per day for 10 years, and then 1 pack per week for 5-7 years. He drinks approximately 1 beer per day. No drugs. Lives at home with his second . x1. Four stepdaughters. Two biologic children (son and daughter). 2 grandsons. 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 He was unaccompanied today in the ER. Allergies Allergy/AdvReac Type Severity Reaction Status Date / Time bee venom protein (honey bee) Allergy Swelling Unverified 10/29/20 09:40 Penicillins Allergy Rash 40+ Unverified 10/29/20 09:40 years ago Home Medications Medication Instructions Recorded Confirmed Type aspirin 81 mg PO DAILY 10/29/20 10/29/20 History atorvastatin 10 mg PO HS 10/29/20 10/29/20 History cyanocobalamin (vitamin B-12) 1,000 mcg PO DAILY 10/29/20 10/29/20 History [Vitamin B-12] magnesium 250 mg PO DAILY 10/29/20 10/29/20 History multivitamin 1 tab PO QAM 10/29/20 10/29/20 History omega 0-ypk-oqq-fish oil [Fish Oil] 1 cap PO DAILY 10/29/20 10/29/20 History ustekinumab [Stelara] 90 mg SUBCUT .Q12WK 10/29/20 10/29/20 History vitamin B complex 1 tab PO DAILY 10/29/20 10/29/20 History Patient History Medical History (Updated 10/29/20 @ 13:57 by João Rea MD) Hyperlipidemia Hypertension Leg cramps Psoriasis On Stelara since 2015 Surgical History (Updated 10/29/20 @ 11:02 by Rc Gibson MD) History of appendectomy Social History (Updated 10/29/20 @ 11:03 by Rc Gibson MD) Smoking Status: Former smoker Age Quit Using Tobacco: 59; packs per day: 0.2; Do You Dip or Chew Tobacco: No; Hx Alcohol Use: Yes Alcohol type: beer Alcohol Intake Frequency: 4 or More x per/Week Alcohol Intake Frequency Comment: 1 beer/day Hx Substance Use: No Feels Safe at Home: Yes Physical Exam Physical Exam: Gen.: No acute distress. Alert and oriented. HEENT: Anicteric sclera. Neck: Mild JVD JVD. No bruits. Normal carotid upstrokes bilaterally. Cardiac: PMI was nonpalpable. No ventricular heave. Regular with ectopy. Normal S1-S2. No murmurs, rubs, or gallops. Pulmonary: Clear to auscultation bilaterally without wheezes, rales, or rhonchi. Abdomen: Soft, nontender, nondistended, with normoactive bowel sounds. No bruits noted. Extremities: 2+ radial pulses bilaterally. 2+ posterior tibialis pulses bilaterally. Trace to 1+ bilateral lower extremity edema. No cyanosis. No palpable cords. Psychiatric: Affect appears appropriate. Results & Data ([facility]) Vital Signs (Past 12 Hours) Vital Signs Temp Pulse Pulse Resp BP BP Pulse Ox 10/29/20 12:01 65 13 168/117 H 96 10/29/20 11:32 75 24 138/107 H 95 10/29/20 11:12 203/134 H 10/29/20 11:07 69 22 212/147 H 96 10/29/20 09:43 69 16 147/99 H 94 10/29/20 09:04 69 18 178/102 H 95 10/29/20 08:54 96 10/29/20 08:36 36.8 C 88 20 166/131 H 95 Intake & Output 10/27/20 10/28/20 10/29/20 10/30/20 05:59 06:59 06:59 06:59 Intake Total 100 / 100 Balance 100 / 100 Weight 302 lb 0.533 oz Laboratory Results Laboratory Results - last 24 hr 10/29/20 10/29/20 10/29/20 09:00 09:00 09:00 WBC 10.65 RBC 5.44 Hgb 16.2 Hct 46.0 MCV 84.6 MCH 29.8 MCHC 35.2 RDW Std Deviation 41.5 RDW Coeff of Jamshid 13.5 Plt Count 288 MPV 10.5 H Immature Gran % (Auto) 0.2 Neut % (Auto) 62.6 Lymph % (Auto) 27.3 Stone % (Auto) 7.0 Eos % (Auto) 2.4 Baso % (Auto) 0.5 Neut # (Auto) 6.66 H Lymph # (Auto) 2.91 Stone # (Auto) 0.75 H Eos # (Auto) 0.26 Baso # (Auto) 0.05 Immature Gran # (Auto) 0.02 PT INR APTT PTT Ratio D-Dimer 550 H* Sodium 140 Potassium 4.2 Chloride 109 H Carbon Dioxide 22 Anion Gap 9.0 BUN 23 H Creatinine 1.18 Est Cr Clr Drug Dosing 89.5 Est GFR ( Amer) 74.1 Est GFR (Non-Af Amer) 63.9 BUN/Creatinine Ratio 19.2 Glucose 153 H Calcium 8.7 Magnesium Total Bilirubin 2.0 H AST 15 ALT 30 Alkaline Phosphatase 57 Troponin I 0.060 H* NT-Pro-B Natriuret Pep 2378 H Total Protein 7.8 Albumin 3.8 Globulin 4.0 Albumin/Globulin Ratio 1.0 Lipase 80 COVID-19 Eval Order SARS-CoV-2, RNA, NAAT 10/29/20 10/29/20 10/29/20 09:00 09:32 11:08 WBC RBC Hgb Hct MCV MCH MCHC RDW Std Deviation RDW Coeff of Jamshid Plt Count MPV Immature Gran % (Auto) Neut % (Auto) Lymph % (Auto) Stone % (Auto) Eos % (Auto) Baso % (Auto) Neut # (Auto) Lymph # (Auto) Stone # (Auto) Eos # (Auto) Baso # (Auto) Immature Gran # (Auto) PT 11.1 INR 1.1 APTT 24.5 PTT Ratio 0.9 D-Dimer Sodium Potassium Chloride Carbon Dioxide Anion Gap BUN Creatinine Est Cr Clr Drug Dosing Est GFR ( Amer) Est GFR (Non-Af Amer) BUN/Creatinine Ratio Glucose Calcium Magnesium 2.2 Total Bilirubin AST ALT Alkaline Phosphatase Troponin I 0.068 H* NT-Pro-B Natriuret Pep Total Protein Albumin Globulin Albumin/Globulin Ratio Lipase COVID-19 Eval Order SARS-CoV-2, RNA, NAAT 10/29/20 10/29/20 11:10 11:10 WBC RBC Hgb Hct MCV MCH MCHC RDW Std Deviation RDW Coeff of Jamshid Plt Count MPV Immature Gran % (Auto) Neut % (Auto) Lymph % (Auto) Stone % (Auto) Eos % (Auto) Baso % (Auto) Neut # (Auto) Lymph # (Auto) Stone # (Auto) Eos # (Auto) Baso # (Auto) Immature Gran # (Auto) PT INR APTT PTT Ratio D-Dimer Sodium Potassium Chloride Carbon Dioxide Anion Gap BUN Creatinine Est Cr Clr Drug Dosing Est GFR ( Amer) Est GFR (Non-Af Amer) BUN/Creatinine Ratio Glucose Calcium Magnesium Total Bilirubin AST ALT Alkaline Phosphatase Troponin I NT-Pro-B Natriuret Pep Total Protein Albumin Globulin Albumin/Globulin Ratio Lipase COVID[facility], RNA, NAAT NEGATIVE Diagnostic Findings ECGs personally reviewed: ECG 10/29/2020 at 11:04 a.m.: Sinus rhythm with PVCs. Nonspecific T-wave abnormality. ECG 10/29/2020 at 8:59 a.m.: Sinus rhythm with 6 beat run of V-tach and PVCs. CTA chest 10/29/2020: No PE. Interstitial pulmonary edema. Small bilateral pleural effusions. Echo 10/29/2020: Images reviewed at the bedside with the patient. On preliminary review, moderately to severely reduced LV systolic function. Global hypokinesis with severe hypokinesis to akinesis of the inferolateral and inferior wall. Mild MR. Formal review to follow. Medications Administered Current Inpatient Medications Aspirin (Aspirin Chew 324 Mg) 324 mg PO NOW STA Stop: 10/29/20 13:20 Carvedilol (Carvedilol 3.125 Mg Tab) 3.125 mg PO NOW STA Stop: 10/29/20 13:19 Furosemide (Furosemide 40 Mg/4 Ml Vial) 20 mg IV NOW STA Stop: 10/29/20 13:23 Heparin Sodium/Dextrose (Heparin Iv Low Dose With Bolus) 1 ea N/A NOW STA; Protocol Stop: 10/29/20 13:19 Heparin Sodium/Dextrose (Heparin Sodium/Dextrose) 25,000 units in 500 mls @ 0.02 mls/hr IV .Q24H [facility]; Protocol Stop: 11/28/20 13:29 PG Care Time/CCT Total # of Minutes Spent Total Time Spent with Patient: Total time spent is greater than 50% in coordination of care (as documented) at patient's floor/unit and/or counseling patient: Coding Level of Care Code 86388 Initial Inpt Care Lvl 3 Diagnoses Acute coronary syndrome I24.9 Cardiomyopathy I42.9 NSVT (nonsustained ventricular tachycardia) I47.2 Hyperlipidemia E78.5 Hypertension I10 Acute systolic CHF (congestive heart failure) I50.21
[2020-10-29] MEDS ORDERED: carvediloL 3.125 MG TAB ONE (13:54)
[2020-10-29] MEDS ORDERED: ASPIRIN CHEW 324 MG ONE (13:54)
[2020-10-29] MEDS ORDERED: HEPARIN 25000 UNIT/500 ML D5W IV ONE (13:54)
[2020-10-29] MEDS ORDERED: FUROSEMIDE 40 MG/4 ML VIAL IV ONE (13:55)
[2020-10-29] MEDS ORDERED: HEPARIN SOD (PORCINE) 1000 UNIT/ML ONE (13:55)
[2020-10-29] MEDS ORDERED: carvediloL 3.125 MG TAB PO ONE (15:00)
[2020-10-29] MEDS: HEPARIN SODIUM/DEXTROSE 25,000 UNITS/500 ML BAG IV SCH (15:00)
[2020-10-29] MEDS ORDERED: lisinopril 5 MG TAB PO ONE (15:30)
--- NOTE | 2020-10-29 15:30 | XCELERA ---
[id number]
[2020-10-29] MEDS: Heparin IV Adult Wt-Based Low-Dose WITH Bolus Protocol IV SCH ×2 (15:44→15:45)
[2020-10-29] MEDS: NITROGLYCERIN 2% OINTMENT 30GM TUBE EXT SCH ×2 (17:29→23:47)
[2020-10-29] MEDS: carvediloL 3.125 MG TAB PO SCH (20:03)
[2020-10-29] MEDS: ATORVASTATIN 40 MG TAB PO SCH (20:04)
[2020-10-29 20:12] LABS: Partial Thromboplastin Ratio 1.1; Partial Thromboplastin Time 27.8 Seconds (21.0-31.0)
[2020-10-29] MEDS ORDERED: HEPARIN IV BOLUS 4,500 UNITS in SYRINGE 0 ML IV ONE (20:50)
[2020-10-29] MEDS ORDERED: ATORVASTATIN 10 MG TAB PO SCH (21:00)
[2020-10-29] MEDS ORDERED: hydrALAZINE HCL 20 MG/ML VIAL IV PRN (23:29)
[2020-10-30] MEDS: ACETAMINOPHEN 325 MG TAB PO PRN ×2 (01:55→08:15)
[2020-10-30 03:49] LABS: Basophils # (auto) 0.06 K/uL (0-0.2); Basophils % (auto) 0.6 %; Eosinophils # (auto) 0.32 K/uL (0-0.5); Hematocrit (blood only) 42.3 % (42-52); Hemoglobin 14.4 g/dL (14.0-18.0); Immature Granulocytes # (auto) 0.02 K/uL (0.00-0.02); Immature Granulocytes % (auto) 0.2 %; Lymphocytes # (auto) 3.01 K/uL (1.2-3.4); Lymphocytes % (auto) 28.4 %; Mean Corpuscular Hemoglobin 28.9 pg (25-34); Mean Corpuscular Volume 84.9 fL (80-100); Mean Platelet Volume 10.9 fL (7.4-10.4); Monocytes # (auto) 0.74 K/uL (0.11-0.59); Neutrophils # (auto) 6.44 K/uL (1.4-6.5); Neutrophils % (auto) 60.8 %; Platelet Count 231 K/uL (130-400); RDW Coefficient of Variation 13.5 % (11.5-14.5); RDW Standard Deviation 41.4 fL (36.4-46.3); Red Blood Count 4.98 M/uL (4.7-6.1); White Blood Count 10.59 K/uL (4.8-10.8)
[2020-10-30 04:00] LABS: Partial Thromboplastin Ratio 1.4; Partial Thromboplastin Time 35.8 Seconds (21.0-31.0)
[2020-10-30 04:07] LABS: Albumin Level 3.5 gm/dl (3.4-5.0); BUN Creatinine Ratio 21.9 (10-20); Calcium 8.3 mg/dl (8.5-10.1); Creatinine Clr Calc Pharmacy 102.5 ml/min; Est GFR (African American) 87.3; Est GFR (Non-African American) 75.3; Potassium 3.9 mmol/L (3.5-5.1)
[2020-10-30 04:20] LABS: Albumin Globulin Ratio 1.1 (0.9-2); Bilirubin,Total 2.3 mg/dl (0.2-1); Globulin 3.2 gm/dl (2.5-4.0); Total Protein 6.7 gm/dl (6.4-8.2); Troponin I 0.061 ng/ml (0-0.045)
[2020-10-30 06:13] LABS: Estimated Average Glucose 157 mg/dl; Hemoglobin A1C 7.1 % (4.5-5.6)
--- NOTE | 2020-10-30 06:17 | Electrocardiogram Report ---
Test Reason : Blood Pressure : / mmHG Vent. Rate : 090 BPM Atrial Rate : 085 BPM P-R Int : 186 ms QRS Dur : 100 ms QT Int : 418 ms P-R-T Axes : 073 002 064 degrees QTc Int : 511 ms Sinus rhythm with frequent Premature ventricular complexes Nonspecific ST and T wave abnormality Prolonged QT Abnormal ECG No previous ECGs available Confirmed by Jooã Rea ([id number]) on 10/30/2020 6:17:22 AM Referred By: Confirmed By:João Rea
[2020-10-30] MEDS: NITROGLYCERIN 2% OINTMENT 30GM TUBE EXT SCH (06:20)
--- NOTE | 2020-10-30 06:29 | Electrocardiogram Report ---
Test Reason : Blood Pressure : / mmHG Vent. Rate : 069 BPM Atrial Rate : 069 BPM P-R Int : 196 ms QRS Dur : 104 ms QT Int : 452 ms P-R-T Axes : 080 008 099 degrees QTc Int : 484 ms Sinus rhythm with frequent Premature ventricular complexes Nonspecific T wave abnormality Abnormal ECG When compared with ECG of 29-OCT-2020 08:59, Nonspecific T wave abnormality now evident in Inferior leads Nonspecific T wave abnormality now evident in Anterior leads Confirmed by João Rea ([id number]) on 10/30/2020 6:29:01 AM Referred By: Donal Garcia Confirmed By:João Rea
--- NOTE | 2020-10-30 07:45 | Hospitalist Progress Note ---
Date of Service October 30, 2020 Assessment & Plan (1) Chest pain: Arpit Zaman is a 65 y/o male former smoker who presents w/ 2 months of atypical chest pain and worsening dyspnea on exertion. atypical chest pain - ELLIOT score 4 points (age, CAD risk factors, ASA use, pos cardiac marker). 20% risk 14 days all cause mortality, new or recurrent RI, or severe recurrent ischemia requiring urgent revascularization. - denies family hx of cardiovascular disease - trop elev at ~0.06 x4 - ecgx2 on 10/[address]-T changes inferior and anterior leads. 10/30 ecg inverted T waves anterior leads. - cta neg for PE. + cardiomegaly. + interstitial pulm edema - cardiac cath: Mild nonobstructive CAD. Nonischemic cardiomyopathy. Elevated left-sided and right-sided filling pressures. Pulmonary hypertension likely due to left heart failure. congestive heart failure in setting of nonischemic cardiomyopathy - echo severely reduced ef 30-35 w/ hypokinesis - fluid overload, suggestive by CTA and LE edema - given cath results, CHF less likely ischemic event cardiology consulted; recs: low sodium diet. BB. Entresto. Spironolactone. Outpatient repeat echo after medical therapy optimized to see if qualify for ICD for primary prevention. - 40 mg IV lasix today. followed by 40 mg IV lasix qam while hospitalized hypertension - ASA 81mg, coreg 3.125 mg PO BID, lisinopril 5 mg PO qam CAD - consider 40 mg atorvastatin given degree of elevation and goal of LDL <70. LDL this admission 88. Previously on 10 mg atorvastatin daily. DM - A1C 7.1. Lifestyle modification as outpatient. Defer medication therapy at this time. psoriasis - continue outpatient weekly Stelara injections FENGI: no mIVF. HH, low sodium, and DM2 diet ppx: Lovenox 40 qAM code: full dispo: med/surg tele. no dispo on 10/30 to optimize diuresis (2) Psoriasis: (3) Acute systolic CHF (congestive heart failure): (4) Elevated troponin: Admission and Anticipated Discharge Date Admission Date: October 29, 2020 Supervising Physician Co-Signing Physician Notes I personally examined the patient and verified all lopez points of history and exam, discussed case, and agree with decision making with Dr Read. feeling better but still somewhat short of breath. extensive idscusion on lifestyle change vitals noted nad heent nc at mmm faint base rales b/l heard L>R no focla neuro deficits acute on ?chronic systolic chf from nonischemic cardiomyopathy - diurese, med management, lifestyle change new DM2 - lifestyle change otherwise as above Subjective No chest pain this AM. Mild headache and nausea after the third nitro patch. Tylenol helped with these symptoms. No prior hx of RI or family hx of heart disease. Denies palpitations. For past 2 months, patient has had progressive lack of stamina, orthopnea, dyspnea on exertion, chest congestion sensation (near diaphragm and not exertional). Patient is a former regular smoker). Review of Systems Review of Systems: Constitutional: Denies fever, chills Eyes: Denies blurry vision Cardiovascular: Denies chest pain, palpitations Respiratory: Denies shortness of breath at rest. + orthopnea. Gastrointestinal: Denies abdominal pain, vomiting, constipation, diarrhea Genitourinary: Denies urinary symptoms including dysuria Musculoskeletal: Denies weakness, muscle aches/pain, joint aches/pain Neurological: Denies numbness, tingling, focal weakness Physical Exam Physical Exam: General: Grossly A&O. NAD. Cooperative. HEENT: Atraumatic, normocephalic. Pulm: CTAB. -wheezes, -rales, -rhonchi. No respiratory distress. Cardiac: RRR, -mrg. Trace RLE edema, patient attributes to hx of bilateral ankle injuries. Abdominal: Nontender, nondistended, soft. Back: No midline spinal TTP. Results & Data Results & Data ([facility]) Vital Signs (Past 12 Hours) Vital Signs Temp Pulse Pulse Resp BP BP Pulse Ox 10/30/20 07:33 36.6 C 72 16 149/100 H 93 10/30/20 04:02 36.6 C 51 L 20 158/90 H 92 10/30/20 00:00 53 L 10/29/20 23:35 36.7 C 58 L 20 147/89 H 92 10/29/20 20:00 63 169/90 H Resident Activity Tracking Resident Involvement: Resident Care Provided Care Provided: Adult Hospital Medicine (1) Chest pain Chest pain type: precordial pain Qualified Code(s): R07.2 - Precordial pain
[2020-10-30] MEDS: MAGNESIUM OXIDE 400 MG TAB PO SCH (08:15)
[2020-10-30] MEDS: MULTIVITAMIN TAB PO SCH (08:15)
[2020-10-30] MEDS: carvediloL 3.125 MG TAB PO SCH ×2 (08:16→20:32)
[2020-10-30] MEDS: ASPIRIN 81 MG ECTAB PO SCH (08:16)
[2020-10-30] MEDS: CYANOCOBALAMIN 500 MCG TABLET (VITAMIN B-12) PO SCH (08:16)
[2020-10-30] MEDS: VITAMIN B COMPLEX TAB PO SCH (08:17)
[2020-10-30] MEDS: OMEGA-3 (PURIFIED FISH OIL) 1 GM CAP PO SCH (08:17)
[2020-10-30 08:37] LABS: Partial Thromboplastin Ratio 1.3; Partial Thromboplastin Time 33.2 Seconds (21.0-31.0)
[2020-10-30] MEDS ORDERED: lisinopril 5 MG TAB PO SCH (09:00)
[2020-10-30] MEDS ORDERED: HEPARIN IV BOLUS 4,000 UNITS in SYRINGE 0 ML IV ONE (09:15)
[2020-10-30] MEDS: HEPARIN SODIUM/DEXTROSE 25,000 UNITS/500 ML BAG IV SCH (11:03)
--- NOTE | 2020-10-30 11:15 | Cardiology Progress Note ---
Date of Service October 30, 2020 Assessment & Plan (1) Acute coronary syndrome: (2) Cardiomyopathy: (3) NSVT (nonsustained ventricular tachycardia): (4) Hyperlipidemia: (5) Hypertension: (6) Acute systolic CHF (congestive heart failure): ASSESSMENT/PLAN: 1. Acute systolic CHF: Remains hypervolemic with significantly elevated left- sided filling pressures. Start Lasix 40 mg IV daily and increase if necessary to achieve at least 1-2 L of negative net fluid balance per day. Spironolactone 25 mg once daily. Entresto low-dose to start tomorrow evening in place of lisinopril. Continue carvedilol at current dose as he is well beta blocked. Low-sodium diet, less than 2000 mg daily. Daily weights. Strict I&Os. He was reminded to collect his urine output for nursing staff to measure. Heart failure program recommended and he is agreeable. He met with Chantel Almanzar today. Consider SGL T2 inhibitor after these other medications are initiated and titrated, especially in light of his elevated hemoglobin A1c. 2. Cardiomyopathy: Nonischemic. Further secondary workup will be evaluated. No recent viral illness that he is aware of. Continue carvedilol. Start Entresto after 36 hours of last dose of lisinopril. Start spironolactone. After medical therapy is optimized, will repeat echo as an outpatient to see if he qualifies for ICD for primary prevention. 3. Nonsustained ventricular tachycardia: Beta-magdiel as noted. No significant ventricular arrhythmia since beta-magdiel has been initiated. 4. Hypertension: Blood pressure has improved during this hospital stay with medical therapy. Further adjustments as above. 5. Dyslipidemia: High-intensity statin therapy for nonobstructive CAD. 6. CAD: Nonobstructive. His anginal symptoms were likely due to heart failure on presentation. No further angina. High-intensity statin therapy, aspirin 81 mg daily, and beta-magdiel. 7. Type 2 diabetes: Elevated hemoglobin A1c. Consider SG LT 2 inhibitor given heart failure diagnosis. Diabetes treatment as per primary service. 8. Disposition: Cardiology will continue to follow. Plan of care discussed with Dr. Mcclain other primary hospitalist service. Mrs. Zaman was also updated in regards to the cardiac catheterization findings and plan of care. Anticipate at least a few more days of hospitalization. Admission and Anticipated Discharge Date Admission Date: October 29, 2020 Subjective He feels much better today. He states that his breathing is better than has been in a long time. He denies chest pain, shortness of breath, orthopnea, paroxysmal nocturnal dyspnea, syncope, near-syncope, palpitations, or bleeding. His urine output was not collected however he reports that he had significant urine output with 1 dose of Lasix 20 mg IV yesterday. He has been NPO in anticipation of cardiac catheterization. His was present at the bedside. Cardiac catheterization was performed in the afternoon and demonstrated nonobstructive CAD. Filling pressures were quite elevated. Unable to obtain pulmonary capillary wedge pressure. Review of systems: As above. Physical Exam Physical Exam: Gen.: No acute distress. Alert and oriented. HEENT: Anicteric sclera. Neck: JVD improved, but still mildly elevated. Cardiac: No ventricular heave. Regular. Normal S1-S2. No murmurs, rubs, or gallops. Pulmonary: Clear to auscultation bilaterally without wheezes, rales, or rhonchi. Abdomen: Soft, nontender, nondistended, with normoactive bowel sounds. No bruits noted. Extremities: 2+ radial pulses bilaterally. 2+ posterior tibialis pulses bilaterally. No significant pitting edema. No cyanosis. Psychiatric: Affect appears appropriate. Results & Data ([facility]) Vital Signs (Past 12 Hours) Vital Signs Temp Pulse Pulse Resp BP BP Pulse Ox 10/30/20 08:10 36.6 C 54 L 18 151/88 H 93 10/30/20 07:33 36.6 C 72 16 149/100 H 93 10/30/20 06:20 57 L 10/30/20 04:02 36.6 C 51 L 20 158/90 H 92 10/30/20 00:00 53 L 10/29/20 23:35 36.7 C 58 L 20 147/89 H 92 Intake & Output 10/28/20 10/29/20 10/30/20 10/31/20 06:59 06:59 06:59 06:59 Intake Total 382.329 / 382.329 56.175 / 56.175 Balance 382.329 / 382.329 56.175 / 56.175 Weight 296 lb 8.348 oz Laboratory Results Laboratory Results - last 24 hr 10/29/20 10/29/20 10/29/20 09:00 11:08 11:08 WBC RBC Hgb Hct MCV MCH MCHC RDW Std Deviation RDW Coeff of Jamshid Plt Count MPV Immature Gran % (Auto) Neut % (Auto) Lymph % (Auto) [place] % (Auto) Eos % (Auto) Baso % (Auto) Neut # (Auto) Lymph # (Auto) [place] # (Auto) Eos # (Auto) Baso # (Auto) Immature Gran # (Auto) APTT PTT Ratio Sodium Potassium Chloride Carbon Dioxide Anion Gap BUN Creatinine Est Cr Clr Drug Dosing Est GFR ( Amer) Est GFR (Non-Af Amer) BUN/Creatinine Ratio Glucose Estimat Average Glucose Hemoglobin A1c Calcium Magnesium 2.2 Total Bilirubin AST ALT Alkaline Phosphatase Troponin I 0.068 H* Total Protein Albumin Globulin Albumin/Globulin Ratio Triglycerides Cholesterol LDL Cholesterol, Calc VLDL Cholesterol, Calc HDL Cholesterol Cholesterol/HDL Ratio TSH 0.890 COVID-19 Eval Order SARS-CoV-2, RNA, NAAT 10/29/20 10/29/20 10/29/20 11:10 11:10 19:45 WBC RBC Hgb Hct MCV MCH MCHC RDW Std Deviation RDW Coeff of Jamshid Plt Count MPV Immature Gran % (Auto) Neut % (Auto) Lymph % (Auto) [place] % (Auto) Eos % (Auto) Baso % (Auto) Neut # (Auto) Lymph # (Auto) Kent # (Auto) Eos # (Auto) Baso # (Auto) Immature Gran # (Auto) APTT PTT Ratio Sodium Potassium Chloride Carbon Dioxide Anion Gap BUN Creatinine Est Cr Clr Drug Dosing Est GFR ( Amer) Est GFR (Non-Af Amer) BUN/Creatinine Ratio Glucose Estimat Average Glucose Hemoglobin A1c Calcium Magnesium Total Bilirubin AST ALT Alkaline Phosphatase Troponin I 0.068 H* Total Protein Albumin Globulin Albumin/Globulin Ratio Triglycerides Cholesterol LDL Cholesterol, Calc VLDL Cholesterol, Calc HDL Cholesterol Cholesterol/HDL Ratio TSH COVID-19 Eval [facility] SARS-CoV-2, RNA, NAAT NEGATIVE 10/29/20 10/30/20 10/30/20 19:45 03:20 03:20 WBC 10.59 RBC 4.98 Hgb 14.4 Hct 42.3 MCV 84.9 MCH 28.9 MCHC 34.0 RDW Std Deviation 41.4 RDW Coeff of Jamshid 13.5 Plt Count 231 MPV 10.9 H Immature Gran % (Auto) 0.2 Neut % (Auto) 60.8 Lymph % (Auto) 28.4 Kent % (Auto) 7.0 Eos % (Auto) 3.0 Baso % (Auto) 0.6 Neut # (Auto) 6.44 Lymph # (Auto) 3.01 Kent # (Auto) 0.74 H Eos # (Auto) 0.32 Baso # (Auto) 0.06 Immature Gran # (Auto) 0.02 APTT 27.8 PTT Ratio 1.1 Sodium 140 Potassium 3.9 Chloride 108 H Carbon Dioxide 28 Anion Gap 4.0 BUN 23 H Creatinine 1.03 Est Cr Clr Drug Dosing 102.5 Est GFR ( Amer) 87.3 Est GFR (Non-Af Amer) 75.3 BUN/Creatinine Ratio 21.9 H Glucose 127 H Estimat Average Glucose Hemoglobin A1c Calcium 8.3 L Magnesium Total Bilirubin 2.3 H AST 10 L ALT 25 Alkaline Phosphatase 50 Troponin I 0.061 H* Total Protein 6.7 Albumin 3.5 Globulin 3.2 Albumin/Globulin Ratio 1.1 Triglycerides 88 Cholesterol 143 LDL Cholesterol, Calc 88 VLDL Cholesterol, Calc 18 HDL Cholesterol 37 Cholesterol/HDL Ratio 4 TSH COVID-19 Eval Order SARS-CoV-2, RNA, NAAT 10/30/20 10/30/20 10/30/20 03:20 03:20 08:09 WBC RBC Hgb Hct MCV MCH MCHC RDW Std Deviation RDW Coeff of Jamshid Plt Count MPV Immature Gran % (Auto) Neut % (Auto) Lymph % (Auto) Kent % (Auto) Eos % (Auto) Baso % (Auto) Neut # (Auto) Lymph # (Auto) Kent # (Auto) Eos # (Auto) Baso # (Auto) Immature Gran # (Auto) APTT 35.8 H 33.2 H PTT Ratio 1.4 1.3 Sodium Potassium Chloride Carbon Dioxide Anion Gap BUN Creatinine Est Cr Clr Drug Dosing Est GFR ( Amer) Est GFR (Non-Af Amer) BUN/Creatinine Ratio Glucose Estimat Average Glucose 157 Hemoglobin A1c 7.1 H Calcium Magnesium Total Bilirubin AST ALT Alkaline Phosphatase Troponin I Total Protein Albumin Globulin Albumin/Globulin Ratio Triglycerides Cholesterol LDL Cholesterol, Calc VLDL Cholesterol, Calc HDL Cholesterol Cholesterol/HDL Ratio TSH COVID-19 Eval Order SARS-CoV-2, RNA, NAAT Diagnostic Findings Telemetry personally reviewed: Sinus rhythm with sinus bradycardia. No ventricular arrhythmia noted. Medications Administered Current Inpatient Medications Acetaminophen (Acetaminophen 325 Mg Tab) 650 mg PO Q4H PRN PRN Reason: Pain or Fever Stop: 11/28/20 14:34 Last Admin: 10/30/20 08:15 Dose: 650 mg Documented by: Aspirin (Aspirin 81 Mg Ectab) 81 mg PO DAILY [facility]LEE Stop: 11/29/20 08:59 Last Admin: 10/30/20 08:16 Dose: 81 mg Documented by: Atorvastatin Calcium (Atorvastatin 40 Mg Tab) 80 mg PO HS [facility] Stop: 11/28/20 20:59 Last Admin: 10/29/20 20:04 Dose: 80 mg Documented by: Carvedilol (Carvedilol 3.125 Mg Tab) 3.125 mg PO BID [facility] Stop: 11/28/20 20:59 Last Admin: 10/30/20 08:16 Dose: Not Given Documented by: Cyanocobalamin (Cyanocobalamin 500 Mcg Tablet (Vitamin B-12)) 1,000 mcg PO DAILY [facility] Stop: 11/29/20 08:59 Last Admin: 10/30/20 08:16 Dose: 1,000 mcg Documented by: Fish Oil ([place]-3 (Purified Fish Oil) 1 Gm Cap) 1 gm PO DAILY [facility] Stop: 11/29/20 08:59 Last Admin: 10/30/20 08:17 Dose: 1 gm Documented by: Hydralazine HCl (Hydralazine Hcl 20 Mg/Ml Vial) 10 mg IV Q4H PRN PRN Reason: sBP > 180 Stop: 11/28/20 23:28 Heparin Sodium/Dextrose (Heparin Sodium/Dextrose) 25,000 units in 500 mls @ 30 mls/hr IV .[id number] [facility]; Protocol Stop: 11/28/20 13:29 Last Admin: 10/30/20 11:03 Dose: 1,500 units/hr, 30 mls/hr Documented by: Lisinopril (Lisinopril 5 Mg Tab) 5 mg PO QAM [facility] Stop: 11/29/20 08:59 Last Admin: 10/30/20 08:17 Dose: 5 mg Documented by: Magnesium Oxide (Magnesium Oxide 400 Mg Tab) 400 mg PO DAILY [facility] Stop: 11/29/20 08:59 Last Admin: 10/30/20 08:15 Dose: 400 mg Documented by: Multivitamins (Multivitamin Tab) 1 tab PO QAM [facility] Stop: 11/29/20 08:59 Last Admin: 10/30/20 08:15 Dose: 1 tab Documented by: Vitamin B Complex (Vitamin B Complex Tab) 1 tab PO DAILY [facility]LEE Stop: 11/29/20 08:59 Last Admin: 10/30/20 08:17 Dose: 1 tab Documented by: PG Care Time/CCT Total # of Minutes Spent Total Time Spent with Patient: Total time spent is greater than 50% in coordination of care (as documented) at patient's floor/unit and/or counseling patient: Coding Level of Care Code 24817 Subseq Hosp Care Lvl 3 Diagnoses Acute coronary syndrome I24.9 Cardiomyopathy I42.9 NSVT (nonsustained ventricular tachycardia) I47.2 Hyperlipidemia E78.5 Hypertension I10 Acute systolic CHF (congestive heart failure) I50.21
[2020-10-30] MEDS ORDERED: MIDAZOLAM HCL 1 MG/ML 2ML VIAL ONE (11:56)
[2020-10-30] MEDS ORDERED: fentaNYL citrate 100 MCG/2 ML VIAL ONE (11:57)
[2020-10-30] MEDS ORDERED: HEPARIN (PORCINE) 1000 UNIT/ML 10 ML (CATH LAB USE ONLY) ONE (11:57)
[2020-10-30] MEDS ORDERED: NITROGLYCERIN/D5W 100MCG/ML 20ML SYR ONE (11:57)
[2020-10-30] MEDS ORDERED: niCARdipine HCL INJ 2.5 MG/ML 10 ML AMP ONE (11:57)
--- NOTE | 2020-10-30 14:42 | Cardiac Catheterization ---
[facility] Data: [employer] Cardiac Status Clinical evaluation leading to the procedure CAD Presenation: Unstable angina Anginal Classification: CCS III Heart Failure: NYHA Class: CCS IV Cardiogenic Shock within 24 Hours: No Cardiac Arrest within 24 Hours: No Imaging Studies Past 6 Months: Yes Stress Studies Past 6 Months: No Standard Exercise Test: No Stress Echocardiogram: No Stress Testing w/SPECT MPI: No Cardiac CTA: No Coronary Anatomy Dominant: Right Left Ventricular Angiography EF (%): n/a Diagnostic Physicians Name: João Rea MD Status: Elective Closure Device Percutaneous Entry Location: Radial Closure Device: Radial Band Recommendations: Management Recommendatons (as above) Cardiac Cath Procedure Full Procedure Date October 30, 2020 Pre-Procedure Diagnosis Pre-Procedure Diagnosis: Angina and CHF AUC Score AUC Score: 8 Post-Procedure Diagnosis Post-Procedure Diagnosis: Mild CAD and Elevated Intracardiac Pressures Procedure(s) Performed Procedure(s) Performed: Coronary Angiography, Left Heart Cath, Right Heart Cath and Ultrasound Guided Vascular Access Rn Intern João Rea MD Phys Therapist(s) Kvng Wright Estimated Blood Loss Estimated Blood Loss: < 30 ml Medication(s) Medication(s): Fentanyl, Heparin, Lidocaine 1%, Nicardipine and Versed Summary of Findings Procedures: 1. Coronary angiography 2. Left heart catheterization 3. Right heart catheterization 4. Moderate sedation 5. Ultrasound guidance for vascular access Indication: He presented with crescendo exertional angina and was found to have cardiomyopathy and acute systolic CHF. Coronary angiography: 1. Left main coronary artery: Large in caliber. No significant CAD. 2. Left anterior descending: Very large caliber vessel proximally. Mid LAD 30 to 40% at bifurcation of large D1. Medium caliber D2. 3. Circumflex: Very large caliber. Proximal circumflex had additional dilated area. Luminal irregularities within large OM1. 4. Right coronary artery: Very large caliber and dominant. Proximal RCA 10 to 20%. Luminal irregularities within the distal RCA. PDA and PL have no significant CAD. Left heart catheterization: 1. Left ventriculography was not performed. 2. No significant aortic stenosis. 3. Severely elevated LVEDP; LVEDP 29 mmHg. Right heart catheterization: 1. Pulmonary artery pressure: 67/25 with a mean of 39 mmHg. 2. RV pressure: 65/7 with RV EDP of 12 mmHg. 3. Right atrial pressure: A wave 17; V wave 15; mean 13 mmHg. 4. Cardiac output via estimated Neel 5.5 L/min with a cardiac index of 2.1 L/min/m. 5. Cardiac output via thermodilution was 3.2 L/min with a cardiac index of 1.26 L/min/m (the right heart catheter continually migrated into the RV and therefore thermodilution calculations may not be accurate). 6. Despite several attempts, the right heart catheter was unable to be sufficiently advanced within the pulmonary artery to obtain pulmonary capillary wedge pressure. Ultrasound guidance for vascular access: 1. Peripheral IV was unable to be obtained within the brachiocephalic vein by nursing staff. Therefore under ultrasound, attempt was made to place venous sheath for right heart catheterization while in the [employer]. With the use of ultrasound, right brachiocephalic vein was noted and appeared to be cannulated with access needle. Of note, the brachial artery was directly adjacent to the vein. Micropuncture sheath was placed and connected to pressure. Arterial waveform was noted. It was then removed and manual pressure applied for greater than 20 minutes without signs of hematoma or further bleeding. 2. The right femoral vein was then cannulated under ultrasound guidance with a 6 [place] sheath, on first attempt. Moderate sedation: 1. Sedation start time: 1:15 PM 2. Sedation end time: 2:31 PM Impression: 1. Mild nonobstructive CAD. 2. Nonischemic cardiomyopathy. 3. Elevated left-sided and right-sided filling pressures. 4. Pulmonary hypertension likely due to left heart failure. 5. No significant aortic stenosis. 6. Reduced cardiac output. Plan: 1. Diurese. 2. Optimize medical therapy. 3. Risk factor modification. 4. If no significant improvement in LV systolic dysfunction on optimal therapy, consider ICD for primary prevention. Hemodynamics Rest Ao:: 154/95 Final Ao: 164/87 LV: 139/15/29 Recommendations Recommendations: Management Recommendatons (as above) Specimens Specimens: None Radiation Exposure (mGy) 2645 mGy. Fluoro time 18.4 min. Contrast (mls) 100 ml Procedural Complication(s) None Disposition [employer] Holding/Recovery I attest to the content of the Intraoperative Record and any orders documented therein. Any exceptions are noted below. mSpoke Card Cath Procedure Codes Cardiac Catheterization Procedure 1: Cardiovascular Cath Procedures: 95577 Coronaries & LHC (+/-LV) & RHC Therapeutic Services & Ancillary Proc Procedure 1: Cardiovascular Tx and Anc Procedures: 61472 Ultrasonic Guidance Vascular Access Moderate Sedation Procedure 1: Sedation/Anesthesia: 96050 Mod Sedation by the same physician;Init15 Min Child Age 5 & Up Procedure 2: Sedation/Anesthesia: 84854 Mod Sedation by the same physician; Ea [id number] Minutes Procedure 3: Sedation/Anesthesia: 60887 Mod Sedation by the same physician; Ea [id number] Minutes Procedure 4: Sedation/Anesthesia: 93074 Mod Sedation by the same physician; Ea [id number] Minutes Procedure 5: Sedation/Anesthesia: 96308 Mod Sedation by the same physician; Ea [id number] Minutes PG Care Time/CCT Total # of Minutes Spent Total Time Spent with Patient: Total time spent is greater than 50% in coordination of care (as documented) at patient's floor/unit and/or counseling patient:
--- NOTE | 2020-10-30 15:10 | Post Anesthesia Assessment ---
Date of Service October 30, 2020 Post Sedation Assessment Vital Signs Temp Pulse Pulse Resp BP BP Pulse Ox 10/30/20 15:00 55 L 18 126/94 97 10/30/20 14:58 58 L 16 126/94 94 10/30/20 14:45 50 L 18 149/95 H 95 10/30/20 12:16 37 C 52 L 16 164/114 H 96 10/30/20 11:17 36.4 C L 58 L 18 139/84 94 10/30/20 08:10 36.6 C 54 L 18 151/88 H 93 10/30/20 07:33 36.6 C 72 16 149/100 H 93 10/30/20 06:20 57 L 10/30/20 04:02 36.6 C 51 L 20 158/90 H 92 10/30/20 00:00 53 L 10/29/20 23:35 36.7 C 58 L 20 147/89 H 92 10/29/20 20:00 63 169/90 H 10/29/20 18:47 36.5 C 18 10/29/20 18:24 59 L 18 149/88 H 95 10/29/20 17:24 55 L 172/109 H Recovery Score Activity: Moves 4 extremities Respiration: Deep Breath/Cough Circulation: +/-20% PreAnes Value Consciousness: Fully Awake Oxygen Saturation: > 92% On Room Air Post Anesthesia Score: 10 Discharge Sedation Level of Care: Fast Track Phase II Post Sedation Plan On clinical assessment, the patient appears to have tolerated the sedation without complications. Patient is recovering as anticipated. Patient will continue to be monitored by nursing and may be discharged when sedation discharge criteria are met per below protocol. Upon Completions of procedure up to 15 minutes continue every 5 minute vital signs and the P.A.R. score; then discharge to a Phase I or Fast Track to Phase II per the following guidelines: * Discharge Patient to appropriate Phase II area if PAR is 8 or greater or return to pre- procedure baseline. The post - procedure orders will be as directed. * If PAR score is less than 8 or not return to pre-procedure baseline then patient will follow Phase I monitoring till PAR is reached for Phase II. The Phase I may be done in procedure room or may call to secure a Phase I area. * If naloxone or flumazenil are used for reversal, hold in Phase I for continued monitoring from when last reversal dose was given for a minimum of 60 minutes or longer pending the nurse and/or physician discretion of patient condition before discharge to Phase II. Please call the Sedation Physician to re-evaluate and complete post-note for discharge to Phase II area. Do NOT discharge from procedure sedation or Phase 1 until post- sedation evaluation note is complete by procedure /sedation MD Sedation Discharge Instructions to be given to the patient at discharge to home.
[2020-10-30 16:52] LABS: iSTAT Venous Carbon Dioxide 25 mmol/L (24-31)
[2020-10-30 16:56] LABS: Partial Thromboplastin Time 25.4 Seconds (21.0-31.0)
[2020-10-30] MEDS ORDERED: FUROSEMIDE 40 MG in SYRINGE 0 ML IV ONE (17:00)
--- NOTE | 2020-10-30 18:57 | Billing Data ---
Date of Service October 30, 2020 Coding Level of Care Code 71653 Subseq Hosp Care Lvl 3
[2020-10-30] MEDS: ATORVASTATIN 40 MG TAB PO SCH (20:32)
--- NOTE | 2020-10-31 05:54 | Electrocardiogram Report ---
Test Reason : Blood Pressure : / mmHG Vent. Rate : 050 BPM Atrial Rate : 050 BPM P-R Int : 212 ms QRS Dur : 100 ms QT Int : 548 ms P-R-T Axes : 072 -01 246 degrees QTc Int : 499 ms Sinus bradycardia with marked sinus arrhythmia with 1st degree A-V block with occasional Premature ve ntricular complexes Premature atrial complexes Cannot rule out Anterior infarct , age undetermined T wave abnormality, consider anterolateral ischemia Abnormal ECG When compared with ECG of 29-OCT-2020 11:04, Inverted T waves have replaced nonspecific T wave abnormality in Anterolateral leads Confirmed by João Rea ([id number]) on 10/31/2020 5:54:23 AM Referred By: Donal Garcia Confirmed By:João Rea
--- NOTE | 2020-10-31 06:54 | Hospitalist Progress Note ---
Date of Service October 31, 2020 Assessment & Plan (1) Chest pain: Arpit Zaman is a 65 y/o male former smoker who presents w/ 2 months of atypical chest pain and worsening dyspnea on exertion. atypical chest pain - ELLIOT score 4 points (age, CAD risk factors, ASA use, pos cardiac marker). 20% risk 14 days all cause mortality, new or recurrent [place], or severe recurrent ischemia requiring urgent revascularization. - denies family hx of cardiovascular disease - trop elev at ~0.06 x4. may be secondary to CHF. Severe L atrial dilation was noted on echo - ecgx2 on 10/[address]-T changes inferior and anterior leads. 10/30 ecg inverted T waves anterior leads. - cta neg for PE. + cardiomegaly. + interstitial pulm edema - cardiac cath: Mild nonobstructive CAD. Nonischemic cardiomyopathy. Elevated left-sided and right-sided filling pressures. Pulmonary hypertension likely due to left heart failure. congestive heart failure in setting of nonischemic cardiomyopathy - echo severely reduced ef 30-35 w/ hypokinesis - fluid overload, suggestive by CTA and LE edema - given cath results, CHF less likely ischemic event cardiology consulted; recs: low sodium diet. BB. Entresto. Spironolactone. Outpatient repeat echo after medical therapy optimized to see if qualify for ICD for primary prevention. - 40 mg IV lasix qam while hospitalized. 10/31 provided PM dose of 40 mg IV lasix. - severely elevated RVSP on cath. dispo tentatively on 11/01 because will continue IV diuresis - will establish w/ heart failure clinic - cumulative Is/Os as of 10/31: 2.2L in 5.5L out - iron 43. transferrin sat low at 12. Multiple myeloma labs pending. nonsustained ventricular tachycardia - 4 beat run in the ED - continue beta magdiel - continue telemetry; no atrial fibrillation noted so far. Intermittent PVCs w/ rare 2-3 beat runs. Also had brief run of atrial tachycardia to 110s. hypertension - heart medications (HTN and CHF): carvedilol 3.125mg po bid. spironolactone 25 mg po qam. Sacubitril/valsartan (Entresto 24/26mg). 1 tab po bid CAD - daily baby ASA - currently on 80 mg atorvastatin - consider 40 mg atorvastatin given degree of elevation and goal of LDL <70. LDL this admission 88. Previously on 10 mg atorvastatin daily as outpatient. DM - A1C 7.1. Lifestyle modification as outpatient. Defer medication therapy at this time. Cardiology recommends considering SGLT2 inhibitor. psoriasis - continue outpatient weekly Stelara injections FENGI: no mIVF. HH, low sodium, and DM2 diet ppx: Lovenox 40 qAM code: full dispo: med/surg tele. dispo tentatively 11/01 (2) Psoriasis: (3) Acute systolic CHF (congestive heart failure): (4) Elevated troponin: Admission and Anticipated Discharge Date Admission Date: October 30, 2020 Supervising Physician Co-Signing Physician Notes I personally examined the patient and verified all lopez points of history and exam, discussed case, and agree with decision making with Dr Read. feeling better. breathing easier. no KEY. reiterated and dug deeper into med management and lifestyle change, answered all questions to the best of my ability and to his satisfaction vitals noted nad heent nc at mmm breathing unlabored no accessory muscles good effort skin no rashes no pallor or icterus acute on ?chronic systolic chf from nonischemic cardiomyopathy - diurese further, med management, lifestyle change (all explained in more detail) new DM2 - lifestyle change (SGLT2 makes clinical sense, but he wants to minimize meds, is highly motivated on lifestyle change, and is quite worried about cost. w A1c 7.1% and poor current lifestyle/excellent lifestyle goal, his DM should effectively be "put in remission" by lifestyle change) otherwise as above Subjective No chest pain, SOB, or orthopneic. Voiding a lot. Tolerating PO intake and feels great. Feels less orthopenic and that he is able to take padilla deep breath today. Review of Systems Review of Systems: Constitutional: Denies fever, chills, Eyes: Denies blurry vision, vision changes ENT: Denies sore throat Cardiovascular: Denies chest pain, palpitations Respiratory: Denies shortness of breath Gastrointestinal: Denies abdominal pain, nausea, vomiting, constipation, diarrhea Genitourinary: Denies urinary symptoms including dysuria Musculoskeletal: Denies weakness. occasional muscle aches, attributes to being in bed a lot Neurological: Denies headache, numbness, tingling, focal weakness Physical Exam Physical Exam: General: Grossly A&O. NAD. Cooperative. HEENT: Atraumatic, normocephalic. Pulm: CTAB. -wheezes, -rales, -rhonchi. No crackles at bases. No respiratory distress. Cardiac: RRR, -mrg. No obvious jvd. No pitting edema appreciated. Ankles mildly puffy appearing. Abdominal: Nontender, nondistended, soft. Obese abdomen. Results & Data Results & Data ([facility]) Vital Signs (Past 12 Hours) Vital Signs Temp Pulse Pulse Resp BP Pulse Ox 10/31/20 03:39 36.8 C 49 L 18 142/80 H 95 10/30/20 23:24 55 L 10/30/20 22:50 36.9 C 67 18 150/86 H 96 10/30/20 19:26 36.5 C 51 L 20 142/88 H 92 Resident Activity Tracking Resident Involvement: Resident Care Provided Care Provided: Adult Hospital Medicine (1) Chest pain Chest pain type: precordial pain Qualified Code(s): R07.2 - Precordial pain
[2020-10-31 07:43] LABS: Hematocrit (blood only) 44.3 % (42-52); Hemoglobin 15.3 g/dL (14.0-18.0); Mean Corpuscular Hemoglobin 29.2 pg (25-34); Mean Corpuscular Hgb Conc 34.5 g/dL (32-36); Mean Corpuscular Volume 84.5 fL (80-100); Mean Platelet Volume 10.7 fL (7.4-10.4); Platelet Count 243 K/uL (130-400); RDW Coefficient of Variation 13.5 % (11.5-14.5); RDW Standard Deviation 41.3 fL (36.4-46.3); Red Blood Count 5.24 M/uL (4.7-6.1); White Blood Count 8.26 K/uL (4.8-10.8)
[2020-10-31 07:52] LABS: BUN Creatinine Ratio 22.8 (10-20); Calcium 9.5 mg/dl (8.5-10.1); Creatinine Clr Calc Pharmacy 104.6 ml/min; Est GFR (African American) 91.6; Potassium 3.9 mmol/L (3.5-5.1)
[2020-10-31 07:57] LABS: Ferritin 271.5 ng/ml (8-388)
[2020-10-31] MEDS: ENOXAPARIN INJ 40 MG/0.4 ML SYR SQ SCH (08:36)
[2020-10-31] MEDS: SPIRONOLACTONE 25 MG TAB PO SCH (08:36)
[2020-10-31] MEDS: carvediloL 3.125 MG TAB PO SCH ×2 (08:36→21:29)
[2020-10-31] MEDS: FUROSEMIDE 40 MG in SYRINGE 0 ML IV SCH (08:36)
[2020-10-31] MEDS: CYANOCOBALAMIN 500 MCG TABLET (VITAMIN B-12) PO SCH (09:11)
[2020-10-31] MEDS: MAGNESIUM OXIDE 400 MG TAB PO SCH (09:11)
[2020-10-31] MEDS: OMEGA-3 (PURIFIED FISH OIL) 1 GM CAP PO SCH (09:11)
[2020-10-31] MEDS: VITAMIN B COMPLEX TAB PO SCH (09:11)
[2020-10-31] MEDS: ASPIRIN 81 MG ECTAB PO SCH (09:11)
[2020-10-31] MEDS: MULTIVITAMIN TAB PO SCH (09:11)
--- NOTE | 2020-10-31 09:24 | Cardiology Progress Note ---
Date of Service October 31, 2020 Assessment & Plan (1) Acute systolic CHF (congestive heart failure): (2) Cardiomyopathy: (3) NSVT (nonsustained ventricular tachycardia): (4) Hyperlipidemia: (5) Hypertension: (6) CAD (coronary artery disease): ASSESSMENT/PLAN: 1. Acute systolic CHF: Continues to improve in diurese well. Still hypervolemic. Continue Lasix 40 mg IV daily and increase if necessary to achieve at least 1-2 L of negative net fluid balance per day. Spironolactone 25 mg once daily. Entresto low-dose starting this evening in place of lisinopril. Continue carvedilol at current dose as he is well beta blocked. Low-sodium diet, less than 2000 mg daily. Daily weights. Strict I&Os. Heart failure program. Consider SGL T2 inhibitor after these other medications are initiated and titrated, especially in light of his elevated hemoglobin A1c. 2. Cardiomyopathy: Nonischemic. TSH and iron studies unremarkable. Other secondary workup pending. No recent viral infection to suggest myocarditis. Continue carvedilol. Start Entresto this evening. Continue spironolactone. After medical therapy is optimized, will repeat echo as an outpatient to see if he qualifies for ICD for primary prevention. 3. Nonsustained ventricular tachycardia: Beta-magdiel as noted. No significant ventricular arrhythmia since beta-magdiel has been initiated. 4. Hypertension: Blood pressure has improved during this hospital stay with medical therapy. Remains mildly hypertensive. Continue diuresis and will continue to titrate his other heart failure medications which should improve his blood pressure further over time. 5. Dyslipidemia: High-intensity statin therapy for nonobstructive CAD. 6. CAD: Nonobstructive. His anginal symptoms were likely due to heart failure on presentation. No further angina. High-intensity statin therapy, aspirin 81 mg daily, and beta-magdiel. 7. Type 2 diabetes: Elevated hemoglobin A1c. Consider SG LT 2 inhibitor given heart failure diagnosis. Diabetes treatment as per primary service. 8. Disposition: Cardiology will continue to follow. Patient care discussed with Ms. Almanzar of the heart failure program. Admission and Anticipated Discharge Date Admission Date: October 30, 2020 Subjective Yesterday he underwent cardiac catheterization and tolerated well. He had nonobstructive CAD. He was found to have significantly elevated filling pressures. He diuresed well with 40 mg of IV Lasix. His breathing is much improved. He has not yet ambulated in the hallways. He denies orthopnea, shortness of breath at rest, syncope, near-syncope, palpitations, or chest discomfort. He denies bleeding. Review of systems: As above. Physical Exam Physical Exam: Gen.: No acute distress. Alert and oriented. HEENT: Anicteric sclera. Neck: Mildly elevated JVD. Hepatic jugular reflux noted. Cardiac: No ventricular heave. Regular. Normal S1-S2. No murmurs, rubs, or gallops. Pulmonary: Clear to auscultation bilaterally without wheezes, rales, or rhonchi. Abdomen: Soft, nontender, nondistended, with normoactive bowel sounds. No bruits noted. Extremities: 2+ radial pulses bilaterally. Right radial cath site is clean, dry, and intact without erythema or discharge. Right femoral venous access site is without hematoma or discharge. 2+ posterior tibialis pulses bilaterally. No significant pitting edema. No cyanosis. Psychiatric: Affect appears appropriate. Results & Data ([facility]) Vital Signs (Past 12 Hours) Vital Signs Temp Pulse Pulse Resp BP Pulse Ox 10/31/20 07:56 53 L 10/31/20 07:14 36.9 C 51 L 18 145/93 H 94 10/31/20 03:39 36.8 C 49 L 18 142/80 H 95 10/30/20 23:24 55 L 10/30/20 22:50 36.9 C 67 18 150/86 H 96 Intake & Output 10/29/20 10/30/20 10/31/20 11/01/20 06:59 06:59 06:59 06:59 Intake Total 382.329 / 382.329 613.675 / 613.675 Output Total 3300 / 3300 Balance 382.329 / 382.329 -2686.325 / -2686.325 Weight 296 lb 8.348 oz 291 lb Laboratory Results Laboratory Results - last 24 hr 10/30/20 10/30/20 10/30/20 14:06 14:25 16:24 WBC RBC Hgb Hct MCV MCH MCHC RDW Std Deviation RDW Coeff of Jamshid Plt Count MPV APTT 25.4 PTT Ratio 1.0 Activ Coag Time Kaolin 92 L POC VBG pH 7.37 POC VBG pCO2 41 POC VBG pO2 < 32 POC VBG HCO3 24 POC VBG Total CO2 25 POC Venous O2 Sat 59.0 L POC VBG Base Excess -2.0 Sodium Potassium Chloride Carbon Dioxide Anion Gap BUN Creatinine Est Cr Clr Drug Dosing Est GFR ( Amer) Est GFR (Non-Af Amer) BUN/Creatinine Ratio Glucose Calcium Iron Transferrin Transferrin % Sat Ferritin Total Protein (PEP) Albumin (PEP) Hscsl-2-Yfhylnlyl Eiwub-0-Royidmvah Oczk-7-Osiopqtz Kkgg-5-Nazrihll Gamma Globulins Monoclonal Peak 3 Ser Monoclonl Protein Ser Monoclonal Prot 2 PEP Interpretation Angiotensin Convert Enz 10/31/20 10/31/20 10/31/20 06:38 06:38 06:47 WBC 8.26 RBC 5.24 Hgb 15.3 Hct 44.3 MCV 84.5 MCH 29.2 MCHC 34.5 RDW Std Deviation 41.3 RDW Coeff of Jamshid 13.5 Plt Count 243 MPV 10.7 H APTT PTT Ratio Activ Coag Time Kaolin POC VBG pH POC VBG pCO2 POC VBG pO2 POC VBG HCO3 POC VBG Total CO2 POC Venous O2 Sat POC VBG Base Excess Sodium 137 Potassium 3.9 Chloride 106 Carbon Dioxide 24 Anion Gap 7.0 BUN 23 H Creatinine 0.99 Est Cr Clr Drug Dosing 104.6 Est GFR ( Amer) 91.6 Est GFR (Non-Af Amer) 79.0 BUN/Creatinine Ratio 22.8 H Glucose 114 H Calcium 9.5 Iron 43 Transferrin 250 Transferrin % Sat 12 L Ferritin 271.5 Total Protein (PEP) Pending Albumin (PEP) Pending Rijxl-3-Gybnmundk Pending Lvinl-0-Llgvkfmga Pending Qteu-3-Zutlcsov Pending Oifn-9-Lduhztvx Pending Gamma Globulins Pending Monoclonal Peak 3 Pending Ser Monoclonl Protein Pending Ser Monoclonal Prot 2 Pending PEP Interpretation Pending Angiotensin Convert Enz Pending Diagnostic Findings Telemetry personally reviewed: Sinus rhythm. Seven beat run of atrial tachycardia. No ventricular arrhythmia. PVCs. Medications Administered Current Inpatient Medications Acetaminophen (Acetaminophen 325 Mg Tab) 650 mg PO Q4H PRN PRN Reason: Pain or Fever Stop: 11/28/20 14:34 Last Admin: 10/30/20 08:15 Dose: 650 mg Documented by: Aspirin (Aspirin 81 Mg Ectab) 81 mg PO DAILY [facility] Stop: 11/29/20 08:59 Last Admin: 10/31/20 09:11 Dose: 81 mg Documented by: Atorvastatin Calcium (Atorvastatin 40 Mg Tab) 80 mg PO HS [facility] Stop: 11/28/20 20:59 Last Admin: 10/30/20 20:32 Dose: 80 mg Documented by: Carvedilol (Carvedilol 3.125 Mg Tab) 3.125 mg PO BID [facility] Stop: 11/28/20 20:59 Last Admin: 10/31/20 08:36 Dose: 3.125 mg Documented by: Cyanocobalamin (Cyanocobalamin 500 Mcg Tablet (Vitamin B-12)) 1,000 mcg PO DAILY [facility] Stop: 11/29/20 08:59 Last Admin: 10/31/20 09:11 Dose: 1,000 mcg Documented by: Enoxaparin Sodium (Enoxaparin Inj 40 Mg/0.4 Ml Syr) 40 mg SQ QAM [facility] Stop: 11/30/20 08:59 Last Admin: 10/31/20 08:36 Dose: 40 mg Documented by: Fish Oil ([place]-3 (Purified Fish Oil) 1 Gm Cap) 1 gm PO DAILY [facility] Stop: 11/29/20 08:59 Last Admin: 10/31/20 09:11 Dose: 1 gm Documented by: Hydralazine HCl (Hydralazine Hcl 20 Mg/Ml Vial) 10 mg IV Q4H PRN PRN Reason: sBP > 180 Stop: 11/28/20 23:28 Furosemide 40 mg/ Syringe 4 mls @ 4 mls/min IV QAM [facility] Stop: 11/30/20 08:59 Last Admin: 10/31/20 08:36 Dose: 4 mls/min Documented by: Magnesium Oxide (Magnesium Oxide 400 Mg Tab) 400 mg PO DAILY [facility] Stop: 11/29/20 08:59 Last Admin: 10/31/20 09:11 Dose: 400 mg Documented by: Multivitamins (Multivitamin Tab) 1 tab PO QAM [facility] Stop: 11/29/20 08:59 Last Admin: 10/31/20 09:11 Dose: 1 tab Documented by: Sacubitril/Valsartan (Sacubitril-Valsartan 24-26 Mg Tab) 1 tab PO BID [facility] Stop: 11/30/20 20:59 Spironolactone (Spironolactone 25 Mg Tab) 25 mg PO QAM [facility] Stop: 11/30/20 08:59 Last Admin: 10/31/20 08:36 Dose: 25 mg Documented by: Vitamin B Complex (Vitamin B Complex Tab) 1 tab PO DAILY [facility] Stop: 11/29/20 08:59 Last Admin: 10/31/20 09:11 Dose: 1 tab Documented by: PG Care Time/CCT Total # of Minutes Spent Total Time Spent with Patient: Total time spent is greater than 50% in coordination of care (as documented) at patient's floor/unit and/or counseling patient: Coding Level of Care Code 69338 Subseq Hosp Care Lvl 3 Diagnoses Acute systolic CHF (congestive heart failure) I50.21 Cardiomyopathy I42.9 NSVT (nonsustained ventricular tachycardia) I47.2 Hyperlipidemia E78.5 Hypertension I10 CAD (coronary artery disease) I25.10
[2020-10-31] MEDS ORDERED: POTASSIUM CHLORIDE CRTAB 20 MEQ TABCR PO STA (13:52)
[2020-10-31] MEDS ORDERED: FUROSEMIDE 40 MG in SYRINGE 0 ML IV ONE (14:00)
--- NOTE | 2020-10-31 15:42 | Heart Failure Progress Note ---
Date of Service October 31, 2020 Assessment & Plan (1) Acute systolic CHF (congestive heart failure): (2) Cardiomyopathy: We discussed the nature of heart failure and the goals of the program. He is agreeable to participation. Continue diuretics as per cardiology recommendations. Patient is on appropriate guideline based therapy at this time. Will continue to aggressively titrate as outpatient. Continue daily STANDING weights. Continue strict I&Os. Continue low sodium diet. CHF teaching packet ordered to the bedside. Will continue to follow during hospitalization. Heart failure follow up has been scheduled for 11/07 at 1030 am. Admission and Anticipated Discharge Date Admission Date: October 30, 2020 Subjective Patient has been referred to the heart failure program by Dr. Rea. Patient was seen today and is agreeable to participation. Cardiology is consulted, please see full notes for details. Results & Data ([facility]) Vital Signs (Past 12 Hours) Vital Signs Temp Pulse Pulse Resp BP BP Pulse Ox 10/31/20 15:25 65 10/31/20 14:45 63 20 131/78 95 10/31/20 11:13 98.5 F 56 L 16 129/85 90 10/31/20 07:56 53 L 10/31/20 07:14 98.4 F 51 L 18 145/93 H 94 10/31/20 03:39 98.2 F 49 L 18 142/80 H 95 PG Care Time/CCT Total # of Minutes Spent Total Time Spent with Patient: Total time spent is greater than 50% in coordination of care (as documented) at patient's floor/unit and/or counseling patient: Heart Failure Data/Metrics Heart Failure Type: Systolic Ejection Fraction: 30-35% NYHA classification: III: Sx w/ ltd. activity Risk Stratification: B Dry Weight: 290 lb Weight: 290 lb Pacemaker: No Implanted Cardiac Defibrillator (ICD): No Bi-V Pacemaker: No Bi-V Defibrillator: No Diabetes Mellitus: Yes Evidenced Based Beta Peterson Therapy Beta Peterson Therapy: Yes Beta Peterson Name: Carvedilol Beta Peterson Target Therapy: Not at Target Therapy EVELIN/ARB/ARNI Therapy EVELIN/ARB/ARNI Therapy: Yes (Entresto 24/26 mg BID) EVELIN/ARB/ARNI Target Therapy: Not at Target Therapy Coding Level of Care Code None Diagnoses Acute systolic CHF (congestive heart failure) I50.21 Cardiomyopathy I42.9
--- NOTE | 2020-10-31 17:41 | Billing Data ---
Date of Service October 31, 2020 Coding Level of Care Code 37568 Subseq Hosp Care Lvl 3
--- NOTE | 2020-10-31 17:42 | Billing Data ---
Date of Service October 31, 2020 Coding Level of Care Code 74478 Subseq Hosp Care Lvl 3
[2020-10-31] MEDS: ATORVASTATIN 40 MG TAB PO SCH (21:28)
[2020-10-31] MEDS: SACUBITRIL-VALSARTAN 24-26 MG TAB PO SCH (21:30)
--- NOTE | 2020-11-01 05:24 | Electrocardiogram Report ---
Test Reason : Blood Pressure : / mmHG Vent. Rate : 052 BPM Atrial Rate : 052 BPM P-R Int : 212 ms QRS Dur : 108 ms QT Int : 490 ms P-R-T Axes : 042 007 143 degrees QTc Int : 455 ms Sinus bradycardia with 1st degree A-V block with occasional Premature ventricular complexes Abnormal ECG When compared with ECG of 30-OCT-2020 06:16, Premature atrial complexes are no longer Present Confirmed by João Rea ([id number]) on 11/01/2020 5:23:40 AM Referred By: Donal Garcia Confirmed By:João Rea
--- NOTE | 2020-11-01 06:47 | Hospitalist Progress Note ---
Date of Service November 01, 2020 Assessment & Plan (1) Chest pain: Arpit Zaman is a 65 y/o male former smoker who presents w/ 2 months of atypical chest pain and worsening dyspnea on exertion. atypical chest pain - ELLIOT score 4 points (age, CAD risk factors, ASA use, pos cardiac marker). 20% risk 14 days all cause mortality, new or recurrent [place], or severe recurrent ischemia requiring urgent revascularization. - denies family hx of cardiovascular disease - trop elev at ~0.06 x4. may be secondary to CHF. Severe L atrial dilation was noted on echo - ecgx2 on 10/[address]-T changes inferior and anterior leads. 10/30 ecg inverted T waves anterior leads. - cta neg for PE. + cardiomegaly. + interstitial pulm edema - cardiac cath: Mild nonobstructive CAD. Nonischemic cardiomyopathy. Elevated left-sided and right-sided filling pressures. Pulmonary hypertension likely due to left heart failure. congestive heart failure in setting of nonischemic cardiomyopathy - echo severely reduced ef 30-35 w/ hypokinesis - fluid overload, suggestive by CTA and LE edema - given cath results, CHF less likely ischemic event cardiology consulted; recs: low sodium diet. BB. Entresto. Spironolactone. Outpatient repeat echo after medical therapy optimized to see if qualify for ICD for primary prevention. - 40 mg IV lasix qam while hospitalized. 10/31 provided PM dose of 40 mg IV lasix. - severely elevated RVSP on cath. dispo tentatively on 11/01 because will continue IV diuresis - will establish w/ heart failure clinic - cumulative Is/Os as of 10/31: 2.2L in 5.5L out - iron 43. transferrin sat low at 12. Multiple myeloma labs pending. nonsustained ventricular tachycardia - 4 beat run in the ED - continue beta magdiel - continue telemetry; no atrial fibrillation noted so far. Intermittent PVCs w/ rare 2-3 beat runs. Also had brief run of atrial tachycardia to 110s. hypertension - heart medications (HTN and CHF): carvedilol 3.125mg po bid. spironolactone 25 mg po qam. Sacubitril/valsartan (Entresto 24/26mg). 1 tab po bid CAD - daily baby ASA - currently on 80 mg atorvastatin - consider 40 mg atorvastatin given degree of elevation and goal of LDL <70. LDL this admission 88. Previously on 10 mg atorvastatin daily as outpatient. DM - A1C 7.1. Lifestyle modification as outpatient. Defer medication therapy at this time. Cardiology recommends considering SGLT2 inhibitor. psoriasis - continue outpatient weekly Stelara injections FENGI: no mIVF. HH, low sodium, and DM2 diet ppx: Lovenox 40 qAM code: full dispo: med/surg tele. dispo tentatively 11/01 (2) Psoriasis: (3) Acute systolic CHF (congestive heart failure): (4) Elevated troponin: Admission and Anticipated Discharge Date Admission Date: October 30, 2020 Review of Systems Review of Systems: Constitutional: Denies fever, chills, weight change Eyes: Denies blurry vision, vision changes ENT: Denies sore throat, sinus pain Cardiovascular: Denies chest pain, palpitations Respiratory: Denies shortness of breath Gastrointestinal: Denies abdominal pain, nausea, vomiting, constipation, diarrhea Genitourinary: Denies urinary symptoms including dysuria Musculoskeletal: Denies weakness, muscle aches/pain, joint aches/pain Neurological: Denies headache, numbness, tingling, focal weakness Physical Exam Physical Exam: General: Grossly A&O. NAD. Cooperative. HEENT: Atraumatic, normocephalic. EOMI Pulm: CTAB. -wheezes, -rales, -rhonchi. No respiratory distress. Cardiac: RRR, -mrg. Radial pulses intact and symmetrical. Abdominal: Nontender, nondistended, soft. Results & Data Results & Data ([facility]) Vital Signs (Past 12 Hours) Vital Signs Temp Pulse Pulse Resp BP BP Pulse Ox 11/01/20 03:30 36.8 C 49 L 18 129/76 94 10/31/20 23:16 36.4 C L 43 L 18 133/72 96 10/31/20 22:20 57 L 10/31/20 21:09 62 148/86 H 10/31/20 19:20 37.1 C 57 L 20 134/92 92 Resident Activity Tracking Resident Involvement: Resident Care Provided Care Provided: Adult Hospital Medicine (1) Chest pain Chest pain type: precordial pain Qualified Code(s): R07.2 - Precordial pain
[2020-11-01 07:29] LABS: BUN Creatinine Ratio 25.9 (10-20); Calcium 8.8 mg/dl (8.5-10.1); Creatinine Clr Calc Pharmacy 103.9 ml/min; Est GFR (African American) 92.7; Potassium 3.9 mmol/L (3.5-5.1)
[2020-11-01] MEDS: SACUBITRIL-VALSARTAN 24-26 MG TAB PO SCH (08:10)
[2020-11-01] MEDS: carvediloL 3.125 MG TAB PO SCH (08:10)
[2020-11-01] MEDS: ASPIRIN 81 MG ECTAB PO SCH (08:10)
[2020-11-01] MEDS: FUROSEMIDE 40 MG in SYRINGE 0 ML IV SCH (08:10)
[2020-11-01] MEDS: MAGNESIUM OXIDE 400 MG TAB PO SCH (08:10)
[2020-11-01] MEDS: CYANOCOBALAMIN 500 MCG TABLET (VITAMIN B-12) PO SCH (08:10)
[2020-11-01] MEDS: VITAMIN B COMPLEX TAB PO SCH (08:11)
[2020-11-01] MEDS: OMEGA-3 (PURIFIED FISH OIL) 1 GM CAP PO SCH (08:11)
[2020-11-01] MEDS: MULTIVITAMIN TAB PO SCH (08:11)
[2020-11-01] MEDS: ENOXAPARIN INJ 40 MG/0.4 ML SYR SQ SCH (08:11)
[2020-11-01] MEDS: SPIRONOLACTONE 25 MG TAB PO SCH (08:11)
--- NOTE | 2020-11-01 11:37 | Cardiology Progress Note ---
Date of Service November 01, 2020 Assessment & Plan (1) Acute systolic CHF (congestive heart failure): ASSESSMENT/PLAN: 1. Acute systolic CHF: Volume status much improved. Still likely hypervolemic but further diuresis can be completed at home. Recommend Lasix 40 mg p.o. daily on discharge and this can be further adjusted as necessary through the heart failure program and the cardiology clinic. We discussed again the importance of a low-sodium diet, less than 2000 mg daily. Check daily weights at home and record them and bring them to future appointments. Close follow-up in Heart failure program. Can consider cardiac rehab. Consider SGL T2 inhibitor after these other medications are initiated and titrated, especially in light of his elevated hemoglobin A1c. 2. Cardiomyopathy: Nonischemic. TSH and ferritin levels unremarkable. Other secondary workup is pending. Continue carvedilol which will not likely be able to be further titrated due to bradycardia. Continue Entresto and titrate as an outpatient. Continue spironolactone. After medical therapy is optimized, will repeat echo as an outpatient to see if he qualifies for ICD for primary prevention. 3. Nonsustained ventricular tachycardia: Beta-magdiel as noted. No significant ventricular arrhythmia since beta-magdiel has been initiated. 4. Hypertension: Blood pressure mostly normotensive today. Continue current regimen as above. 5. Dyslipidemia: High-intensity statin therapy for nonobstructive CAD. 6. CAD: Nonobstructive. His anginal symptoms were likely due to heart failure on presentation. No further angina. High-intensity statin therapy, aspirin 81 mg daily, and beta-magdiel. 7. Type 2 diabetes: Elevated hemoglobin A1c. Consider SG LT 2 inhibitor given heart failure diagnosis. Diabetes treatment as per primary service. 8. Disposition: Patient care and discharge plans discussed with Dr. Carmichael of the hospitalist service. Close follow-up in the Heart failure program. Patient can be discharged from a cardiac standpoint. (2) Cardiomyopathy: Admission and Anticipated Discharge Date Admission Date: October 30, 2020 Subjective He was seen earlier today, prior to discharge. His shortness of breath is vastly improved. He was able to ambulate in the hallway and did note decreased exercise tolerance after being sedentary the past few days. He denies orthopnea, chest pain, syncope, near-syncope, palpitations, edema, or bleeding. During our visit, Dr. Carmichael of the hospitalist service was also at the bedside and we discussed patient care and discharge plans. Mr. Zaman had questions and concerns and we discussed low-sodium diet, daily weights, medical therapy and follow-up plans including potential cardiac rehab. Review of systems: As above. Physical Exam Physical Exam: Gen.: No acute distress. Alert and oriented. HEENT: Anicteric sclera. Neck: No JVD noted. Very mild hepatic jugular reflux noted. Cardiac: No ventricular heave. Regular. Normal S1-S2. No murmurs, rubs, or gallops. Pulmonary: Clear to auscultation bilaterally without wheezes, rales, or rhonchi. Abdomen: Soft, nontender, nondistended, with normoactive bowel sounds. No bruits noted. Extremities: 2+ radial pulses bilaterally. Right radial cath site is clean, dry, and intact without erythema or discharge. Right brachial artery site was without hematoma or discharge. Right femoral venous access site is without hematoma or discharge. 2+ posterior tibialis pulses bilaterally. No significant pitting edema. No cyanosis. Psychiatric: Affect appears appropriate. Results & Data ([facility]) Vital Signs (Past 12 Hours) Vital Signs Temp Pulse Pulse Resp BP Pulse Ox 11/01/20 11:26 36.7 C 58 L 17 141/89 H 94 11/01/20 08:09 135/88 11/01/20 08:00 56 L 11/01/20 07:36 36.4 C L 52 L 19 93 11/01/20 03:30 36.8 C 49 L 18 129/76 94 Intake & Output 10/30/20 10/31/20 11/01/20 11/02/20 06:59 06:59 06:59 06:59 Intake Total 382.329 / 382.329 613.675 / 227.577 7617 / 1460 Output Total 3300 / 3300 2925 / 2925 Balance 382.329 / 382.329 -2686.325 / -2686.325 -1465 / -1465 Weight 296 lb 8.348 oz 291 lb 281 lb 12.012 oz Laboratory Results Laboratory Results - last 24 hr 11/01/20 06:43 Sodium 138 Potassium 3.9 Chloride 106 Carbon Dioxide 25 Anion Gap 7.0 BUN 25 H Creatinine 0.98 Est Cr Clr Drug Dosing 103.9 Est GFR ( Amer) 92.7 Est GFR (Non-Af Amer) 80.0 BUN/Creatinine Ratio 25.9 H Glucose 127 H Calcium 8.8 Diagnostic Findings Telemetry was personally reviewed: Sinus rhythm. No significant arrhythmia. Medications Administered Current Inpatient Medications Acetaminophen (Acetaminophen 325 Mg Tab) 650 mg PO Q4H PRN PRN Reason: Pain or Fever Stop: 11/28/20 14:34 Last Admin: 10/30/20 08:15 Dose: 650 mg Documented by: Aspirin (Aspirin 81 Mg Ectab) 81 mg PO DAILY CARLEE Stop: 11/29/20 08:59 Last Admin: 11/01/20 08:10 Dose: 81 mg Documented by: Atorvastatin Calcium (Atorvastatin 40 Mg Tab) 80 mg PO HS CARLEE Stop: 11/28/20 20:59 Last Admin: 10/31/20 21:28 Dose: 80 mg Documented by: Carvedilol (Carvedilol 3.125 Mg Tab) 3.125 mg PO BID CARLEE Stop: 11/28/20 20:59 Last Admin: 11/01/20 08:10 Dose: 3.125 mg Documented by: Cyanocobalamin (Cyanocobalamin 500 Mcg Tablet (Vitamin B-12)) 1,000 mcg PO DAILY CARLEE Stop: 11/29/20 08:59 Last Admin: 11/01/20 08:10 Dose: 1,000 mcg Documented by: Enoxaparin Sodium (Enoxaparin Inj 40 Mg/0.4 Ml Syr) 40 mg SQ QAM CARLEE Stop: 11/30/20 08:59 Last Admin: 11/01/20 08:11 Dose: 40 mg Documented by: Fish Oil ([place]-3 (Purified Fish Oil) 1 Gm Cap) 1 gm PO DAILY CARLEE Stop: 11/29/20 08:59 Last Admin: 11/01/20 08:11 Dose: 1 gm Documented by: Hydralazine HCl (Hydralazine Hcl 20 Mg/Ml Vial) 10 mg IV Q4H PRN PRN Reason: sBP > 180 Stop: 11/28/20 23:28 Furosemide 40 mg/ Syringe 4 mls @ 4 mls/min IV QAM CARLEE Stop: 11/30/20 08:59 Last Admin: 11/01/20 08:10 Dose: 4 mls/min Documented by: Magnesium Oxide (Magnesium Oxide 400 Mg Tab) 400 mg PO DAILY CARLEE Stop: 11/29/20 08:59 Last Admin: 11/01/20 08:10 Dose: 400 mg Documented by: Multivitamins (Multivitamin Tab) 1 tab PO QAM CARLEE Stop: 11/29/20 08:59 Last Admin: 11/01/20 08:11 Dose: 1 tab Documented by: Sacubitril/Valsartan (Sacubitril-Valsartan 24-26 Mg Tab) 1 tab PO BID CARLEE Stop: 11/30/20 20:59 Last Admin: 11/01/20 08:10 Dose: 1 tab Documented by: Spironolactone (Spironolactone 25 Mg Tab) 25 mg PO QAM CARLEE Stop: 11/30/20 08:59 Last Admin: 11/01/20 08:11 Dose: 25 mg Documented by: Vitamin B Complex (Vitamin B Complex Tab) 1 tab PO DAILY CARLEE Stop: 11/29/20 08:59 Last Admin: 11/01/20 08:11 Dose: 1 tab Documented by: PG Care Time/CCT Total # of Minutes Spent Total Time Spent with Patient: Total time spent is greater than 50% in coordination of care (as documented) at patient's floor/unit and/or counseling patient: Coding Level of Care Code 33167 Subseq Hosp Care Lvl 3 Diagnoses Acute systolic CHF (congestive heart failure) I50.21 Cardiomyopathy I42.9
--- NOTE | 2020-11-01 12:57 | Discharge Summary ---
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 Unclear exact history as he has had some degree of shortness of breath, cough and chest heaviness for many years which she is put down to his prior smoking history. However, he notes increasing shortness of breath especially at night or on lying flat getting progressively worse over the last month. Associated chest heaviness for the last 2 weeks also getting progressively worse to the point where it is now interrupting his sleep. Usually he waits while and is able to get back to sleep however this morning his breathing was much worse while lying down with associated palpitations therefore his recommended he goes to the ER. He has been concerned about Covid and checks his O2 sats regularly over the last week which have been normal. He routinely works out at the [facility] for around 30 minutes of cardio training - last went 5 days ago without any worsening of his chest heaviness or shortness of breath, he feels what ever shortness of breath he does have is related to wearing a mask. He notes possible history of QT prolongation on a routine EKG taken as part of his longterm physical however he was not started on any treatment for this. Notably received Moderna vaccine with low-grade temperature and generalized fatigue after the second dose 10 days ago. Admission Exam Per Admitting Provider Constitutional: WD/WN, vitals as above + obese Eyes: + anicteric sclerae; normal pupil size ENMT: external ear and nose normal, oropharynx normal Neck: trachea midline, no thyromegaly Respiratory: normal respiratory effort; no respiratory distress Auscultation: + crackles (Bibasal fine); no wheezes Cardiovascular: Rate/Rhythm: regular rate and regular rhythm (Frequent skipped beats) Heart Sounds: no murmur Vessels: no JVD Extremities: normal capillary refill and + pedal edema (Trace ankles bilaterally); no calf tenderness Gastrointestinal (Abdomen): normal bowel sounds, soft, nontender, no hepatosplenomegaly Musculoskeletal: no cyanosis or clubbing, extremities motor strength 5/5 Skin: no rashes, warm and dry Neurologic: moves all extremities and awake; not confused Psychiatric: A+Ox3, euthymic affect Principal Diagnosis new dx acute on chronic systolic chf Discharge Exam General: Grossly A&O. NAD. Cooperative. HEENT: Atraumatic, normocephalic. Pulm: CTAB. -wheezes, -rales, -rhonchi. No respiratory distress. Cardiac: RRR, -mrg. No pitting edema of lower extremities. Abdominal: Nontender, nondistended, soft. Obese abdomen. Discharge Data Allergies Allergy/AdvReac Type Severity Reaction Status Date / Time bee venom protein (honey bee) Allergy Swelling Unverified 10/29/20 09:40 Penicillins Allergy Rash 40+ Unverified 10/29/20 09:40 years ago Consultations 10/29/20 11:07 Consult Cardiology Routine Procedures Performed Operation Date: 10/30/20 11:00 Actual Procedures p Cath, Right and Left Heart - João Rea MD s Cineradiography w/Routine Exam - João Rea MD s Ultrasound Vascular Access - João Rea MD Ordered Studies 10/29/20 11:14 CT angio chest PE protocol Stat 10/30/20 07:10 CL Cath Imgs for PACS use only Stat Diabetes Follow up Diabetes Follow-up Needed for Newly Diagnosed Diabetes Hospital Course (1) Acute systolic CHF (congestive heart failure): pcp f/u in 1 wk. heart failure clinic f/u. nutrition educator f/u. Arpit Zaman is a 65 y/o male former smoker who presented w/ atypical chest pain and worsening dyspnea on exertion, diagnosed w/ new acute on chronic HFrEF CHF. Cardiac cath revealed mild nonobstructive CAD. atypical chest pain - ELLIOT score 4 points (age, CAD risk factors, ASA use, pos cardiac marker). 20% risk 14 days all cause mortality, new or recurrent AK, or severe recurrent ischemia requiring urgent revascularization. - denies family hx of cardiovascular disease - trop elev at ~0.06 x4. may be secondary to CHF. Severe L atrial dilation was noted on echo - ecgx2 on 10/[address]-T changes inferior and anterior leads. 10/30 ecg inverted T waves anterior leads. - cta neg for PE. + cardiomegaly. + interstitial pulm edema - cardiac cath: Mild nonobstructive CAD. Nonischemic cardiomyopathy. Elevated left-sided and right-sided filling pressures. Pulmonary hypertension likely due to left heart failure. congestive heart failure in setting of nonischemic cardiomyopathy - echo severely reduced ef 30-35 w/ hypokinesis - fluid overload, suggestive by CTA and LE edema - given cath results, CHF less likely ischemic event cardiology consulted; recs: low sodium diet. BB. Entresto. Spironolactone. Outpatient repeat echo after medical therapy optimized to see if qualify for ICD for primary prevention. - 40 mg IV lasix qam while hospitalized. 10/31 provided PM dose of 40 mg IV lasix. - severely elevated RVSP on cath - will establish w/ heart failure clinic - cumulative 2.4L in 6.2L out. - iron 43. transferrin sat low at 12. Multiple myeloma labs ordered. 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 Intermittent PVCs w/ rare 2-3 beat runs. Also had brief run of atrial tachycardia to 110s. hypertension - heart medications (HTN and CHF): carvedilol 3.125mg po bid. spironolactone 25 mg po qam. Sacubitril/valsartan (Entresto 24/26mg). 1 tab po BID CAD - daily baby ASA - consider 40 mg atorvastatin given degree of elevation and goal of LDL <70. LDL this admission 88. Previously on 10 mg atorvastatin daily as outpatient. DM - A1C 7.1. Lifestyle modification as outpatient. Defer medication therapy at this time. Cardiology recommends considering SGLT2 inhibitor. psoriasis - continue outpatient weekly Stelara injections code: full (2) Psoriasis: (3) Elevated troponin: Total Time Total Time Spent Total Time Spent (In Minutes): <30 Discharge Plan Discharge Items Patient Disposition: Home - Self-Care Reason For Visit: CHEST PAIN,SOB Discharge Diagnosis: congestive heart failure Activity: Per Instructions section Non-emergency contact: Primary Care Provider Call non-emergency contact if: you have any medication questions and your pain is not controlled Follow-up/Referrals: Donal Garcia MD [Primary Care Provider] - (hosp follow up in 1-2 weeks) Chantel Almanzar PA-C [Physician Senior Information Security Architect] - 11/07/20 10:30 am (Congestive Heart Failure Program Appointment Information Early follow up is essential to managing your heart failure. An appointment has been scheduled for you with the [facility] Heart Failure Program within 7 days of discharge. Anticipate this visit to be 30-60 minutes long. Please expect a soaping department supervisor phone call from one of our nurses approximately 48 hours from discharge. They will also be placing an order for lab work to be completed 1-2 days prior to your heart failure follow up appointment. Please be sure to have this done so we can go over the results when you come in. Office Location The cardiology office building is located in front of the hospital at [address] Bring the following with you to your follow-up doctor appointments: Please bring your daily weight log any discharge paperwork all of your medication bottles with you to this visit. ) Diet: Carb Consistent or DM2 and Low Sodium (2gm) Addtl Attending Provider Instructions: Hi Mr. Zaman, You were admitted to [facility] for chest pain and shortness of breath. The workup showed that you have congestive heart failure. You had difficulty breathing because of excessive fluid in your lungs. We diuresed you with IV lasix with good symptom improvement. A cardiac catherization was performed and it did not show occlusion of your coronary arteries. New medications: 1. furosemide (Lasix) 40 mg tablet by mouth 1x/day 2. atorvastatin 40 mg tablet nightly 3. carvedilol 3.125 mg by mouth twice a day. This medication can lower your heart rate. If you start feeling faint or lightheaded, check your heart rate and can skip a dose if symptoms severe. Let your PCP know and the medication frequency can be adjusted. 4. spironolactone 25 mg every morning 5. Entresto 1 tab daily. correction: BID continue daily baby aspirin 81 mg For the congestive heart failure, aim for <2000mg sodium daily, roughly no more than 500mg per meal. Follow up regularly with Chantel Almanzar at the [facility] heart failure clinic. For your diabetes, we will start with lifestyle modifications. Avoid sugary beverages including sodas and juices. There are additional recommendations in the attached handouts. Follow up with your PCP Dr. Garcia in 1 week. Request a referral from him to the outpatient nutrition educator who will help follow you longitudinally to optimize the modifications. Standard return precautions: If you develop any new or worsening symptoms including fever, chills, sweats, chest pain, chest pressure, difficulty breathing, uncontrolled nausea/vomiting, rash, wheezing, passing out or nearly passing out, bleeding, black/bloody bowel movements, or other new or concerning symptoms please call your primary care physician, or call 911 for re-evaluation in the emergency department if you are very concerned. Congestive Heart Failure: Discharge Instructions Congestive Heart Failure essentially means your heart is able to have a "traffic jam" of fluid that backs up into your lungs. Fluid in lungs then blocks up breathing space making you feel short of breath. In the hospital, our job is to get the fluid off so that you are able to breathe better, and then get you back on track with medication and lifestyle adjustments to keep the traffic jam from happening again. Salt (Sodium) The vast majority of people admitted to the hospital with fluid back up into the lungs get there because of too much salt in their diet. The way our kidneys work: when you take a small amount of sodium, your kidneys hold onto a small amount of water. When you take a large amount of sodium, your kidneys hold onto a large amount of water. When this happens, your blood vessels get flooded, your heart gets overfilled, and the fluid backs up into your lungs. Most people know to avoid the salt shaker, but sodium is in almost anything prepackaged/prepared, as a preservative or as a flavoring agent. Most of the people we take care of who are here with congestive heart failure caused by too much sodium do not use a salt shaker at all. Get into the habit of looking at food labels, so you can see how much sodium is in the foods you eat. The most important number to look at is how much sodium is in each serving. But also notice the size of a serving. Food companies will frequently make a serving size so tiny that it does not look like there is much sodium per serving, but a normal person might eat 3 or 4 servings of the food and take in a lot more sodium than they realized. Keep a "budget" of how much sodium you take in in each day. Most people stay out of trouble and stay out of the hospital as long as they stay "under budget". The majority of congestive heart failure patients do well if they take less than 2000 mg of sodium a day. Because our kidneys retain water based on how much sodium they are seeing in any given moment, it is also important to stay at less than about 500 mg in any given meal. This is because even if you stayed at less than 2000 mg of sodium, but ate it all at once, your kidneys would retain fluid at a rate as though you are taking in much more sodium than you actually are. Occasionally your doctor may specifically recommend restricting even further (such as less than 1500mg per day) so if you have been told to be even stricter with sodium, please follow that advice. -Following How You Are Doing (Wet Versus Dry) Because managing congestive heart failure is an ongoing process, it is very important to learn how to follow your signs and symptoms and track how you are doing at home. This will allow you to catch problems before they become a big deal. In general, as your health care team, we look at managing congestive heart failure chronically as a balance of being "wet" (flooded with fluid) versus being "dry" (dehydrated from treatment). Wet - signs of fluid retention that would warrant further evaluation: Check your weight daily. If your weight goes up by more than 2 pounds in 1 day, it is almost certainly fluid related. This should warrant further thought, and/or a call to your doctor Follow your breathingmost of the time, early on when fluid backs up into your lungs, you will first start to notice shortness of breath when walking, or when lying flat. If you notice either of these, this should warrant further thought, and/or a call to your doctor If you notice both an increase in weight and worsening breathing, that definitely warrants getting seen as soon as possible "Dry"while the goal of managing the disease is to keep you from getting "wet, the medications can sometimes cause a degree of dehydration. Most people with congestive heart failure need frequent lab work (basic metabolic panel). Generally when there has been a change in diuretic dosing (a change in the water pill) or any other major changes, lab work should be followed closely and more frequently afterwards. This is because lab work will frequently show early signs of dehydration before you start to feel bad. Frequent symptoms of being dehydrated include: feeling weak and lightheaded, having lower blood pressures, making less urine than usual, or having a very dry mouth. If you notice any of these signs/symptoms, and you are not due for lab work, it would be quite reasonable to call your doctor to see if lab work or a visit could be arranged. Heart Failure Management Checklist: Limit Salt (Sodium) Intake to 2000mg (2g) per day and 500mg (0.5g) per meal Check weight daily (in same clothes, without shoes) every morning Use the provided chart to enter your weight and salt intake for the day Are you too wet? If you gained 2lb or more - make sure to take your water pill If your breathing is not good (you are more short of breath than usual) call your doctor regardless of weight change If you gained 2lb or more and you are short of breath, see your doctor or come to the emergency room Are you too dry? If you feel weak or lightheaded, have lower blood pressures, make less urine than usual, or have a very dry mouth. Call your doctor type 2 diabetes -while we worry about diabetes due to the problem that high sugar clogs arteries, fortunately you don't have a lot of atherosclerosis based on your heart cath (and while some people form vascular disease just in certain parts of the body, most form it pretty equally everywhere so it's not likely that you have a lot of blockages elsewhere) - this gives us margin of error -the lifestyle changes that you're already talking about making should essentially "fix" the diabetes - ie we should be able to look for some semblance of control/"remission"/"cure" -if you're not seeing improvement (ie if you're not basically an "ex-diabetic") in ~6-12 months, then it would be worthwhile to get a glucometer and check sugar readings about 2 hours after you eat - this would show you what you're eating that is causing sugars to spike - and then help you avoid those foods. basically anything that would spike your sugar about 150-160 two hours after eating would be something that you'd want to minimize or avoid Addtl Flooring Helper Provider Instructions: ACTIVITY RECOMMENDATIONS: Excess manipulation of the wrist should be avoided for the next 24-48 hours. * No lifting over 2 pounds (approximately a 1/2 gallon of milk) with the utilized arm for 24 hours. * No strenuous activity such as bowling or tennis for 3 days. * Keep the site of the procedure covered with a bandage for 24 hours. *You may shower the day after the procedure. Do not take a tub bath or submerge the puncture site in water for the next 3 days. *Do not operate any motorized equipment for 3 days. SPECIAL CARE INSTRUCTIONS: The site may be slightly bruised and sore following your procedure. Should any of the following occur, contact the Dr. who performed your procedure. 1. Redness/inflammation, swelling, chills, or fever, or colored drainage at procedure site within 3-7 days after your procedure. 2. Coldness, discoloration, ongoing numbness, severe pain, or swelling. Expect mild tingling of hand and tenderness at the puncture site for up to three days. If this persists beyond three days, or other symptoms develop, notify the Dr. who performed your procedure. BLEEDING: If the procedure site on your wrist begins to bleed, do not panic 1. Place 1 or 2 fingers firmly just slightly above the insertion site to stop the bleeding. You may be able to feel your pulse as you hold pressure. 2. Lift your finger after 5 minutes to see if the bleeding has stopped. 3. Once the bleeding has stopped, gently wipe the wrist area clean with a bandage. * If the bleeding from your wrist does not stop after 10 minutes, or if there is a large amount of bleeding or spurting, call 911 (do not drive yourself to the hospital). SKIN IRRITATION: * You may experience some redness and/or swelling in the area where radiation was administered. If any skin irritation occurs, please contact your family physician. FOLLOW UP VISIT: Keep any scheduled doctor appointments. Call your Primary Care doctor if any of the following symptoms or problems start or get worse: * Shortness of breath or difficulty breathing * Wake up at night short of breath * Chest pain * Cough * Swelling of your hands, feet, or legs * More fatigued or tired with your normal activity * Palpitations - sudden fast heart beats WEIGHT * Weigh yourself every morning after using the bathroom. * Use the same scale. * Wear the same amount of clothing. * Write your weight down on a chart. * Call your Primary Care doctor if you gain more than 2-3 pounds in 1-2 days. MEDICATIONS * Use this discharge instruction sheet for medication instructions. * Take your medications at the time your doctor ordered. * Do not skip a dose of your medicines. * If you miss a dose of medicine, take it as soon as possible, but DO NOT DOUBLE A DOSE. * Read your medicine information when you get home. * Know all of the side effects of your medicine. If in doubt, ask your pharmacist * Call your Primary Care doctor's office if you have any side effects. * Be sure all of your doctors know what medicine and herbs you take (including cold, flu, and herbal medicine). Take the following with you to your follow-up doctor appointments: * Weight Chart * Medication List * List of questions Do not drink excessive alcohol, beer or wine. Pending Studies at Discharge: No Stand-Alone Forms: [facility] CHF Dc Instructions, My [facility] H2020, Smoking Cessation Medications and DC Order Prescriptions: New spironolactone 25 mg Tablet 25 mg PO QAM 30 Days Qty: 30 RF: 1 carvedilol 3.125 mg Tablet 3.125 mg PO BID 30 Days Qty: 60 RF: 1 Entresto 24-26 mg Tablet 1 tab PO BID 30 Days Qty: 60 RF: 1 atorvastatin 40 mg tablet 40 mg PO HS 30 Days Qty: 30 RF: 1 furosemide 40 mg tablet 40 mg PO DAILY 30 Days Qty: 30 RF: 1 Continued multivitamin Tablet 1 tab PO QAM RF: 0 cyanocobalamin (vitamin B-12) [Vitamin B-12] 1,000 mcg Tablet 1,000 mcg PO DAILY RF: 0 aspirin 81 mg Tablet,Delayed Release (Dr/Ec) 81 mg PO DAILY RF: 0 vitamin B complex Tablet 1 tab PO DAILY RF: 0 magnesium 250 mg Tablet 250 mg PO DAILY RF: 0 omega 4-mvt-fdr-fish oil [Fish Oil] 1,000 mg (120 mg-180 mg) Capsule 1 cap PO DAILY RF: 0 Stelara 90 mg/mL syringe 90 mg SUBCUT .Q12WK RF: 0 Discontinued atorvastatin 10 mg tablet 10 mg PO HS RF: 0 Discharge Orders: Discharge Order (Routine); Ordered 11/01/20 Ordered By: Júnior Bright/Other Patient Handouts: High Blood Sugar (Hyperglycemia), Hypoglycemia (Low Blood Sugar), Managing Type 2 Diabetes, Exercise to Manage Your Blood Sugar, 5 Steps for Eating Healthier, Understanding Type 2 Diabetes, A1C Admission Data Admit Date/Time: 10/30/20 18:56 Attending Provider: Júnior Carmichael Admit Provider: Rc Gibson Primary Care Provider: Donal Garcia Other Providers: Rc Gibson ; João Rea Other Interventions: Discharge Summary Assessment (RN) Last Done: 11/01/20 15:08 Supervising Physician Co-Signing Physician Notes I personally examined the patient and verified all lopez points of history and exam, discussed case, and agree with decision making with Dr Read. Feeling better and feeling up to going home. Extensive discussion yet again on lifestyle and medications. Answered all questions to the best my ability and to his satisfaction, case discussed with patient/ all in the room together vitals noted nad heent nc at mmm breathing unlabored no accessory muscles good effort skin no rashes no pallor or icterus acute on ?chronic systolic chf from nonischemic cardiomyopathy -stable for home, med management, lifestyle changes, close follow-up new DM2 - lifestyle change (SGLT2 makes clinical sense, but he wants to minimize meds, is highly motivated on lifestyle change, and is quite worried about cost. w A1c 7.1% and poor current lifestyle/excellent lifestyle goal, his DM should effectively be "put in remission" by lifestyle change) otherwise as above Resident Activity Tracking Resident Involvement: Resident Care Provided Care Provided: Adult Hospital Medicine
--- NOTE | 2020-11-01 18:21 | Billing Data ---
Date of Service November 01, 2020 Coding Level of Care Code D/C Day Management <30 mins
[2020-11-02 10:12] LABS: Albumin 3.6 g/dL (3.8-4.8); Alpha 1 Globulin 0.3 g/dL (0.2-0.3); Alpha 2 Globulin 0.8 g/dL (0.5-0.9); Angiotensin Converting Enzyme 9 U/L (9-67); Beta-1-Globulin 0.4 g/dL (0.4-0.6); Beta-2-Globulin 0.4 g/dL (0.2-0.5); Gamma Globulin 0.9 g/dL (0.8-1.7); Monoclonal Protein Band 1 DNR g/dL (NONE DETECTED); Monoclonal Protein Band 2 DNR g/dL (NONE DETECTED); Monoclonal Protein Band 3 DNR g/dL (NONE DETECTED); Total Protein 6.4 g/dL (6.1-8.1)
[2020-11-02 11:11] LABS: Creatinine Ur 67 mg/dL (20-320); Protein, Urine Random 7 mg/dL (5-25); Ur Protein/Creat Ratio mg/g 104 mg/g creat (22-128); Urine Abnormal Protein Band 1 DNR mg/dL (NONE DETECTED); Urine Abnormal Protein Band 2 DNR mg/dL (NONE DETECTED); Urine Abnormal Protein Band 3 DNR mg/dL (NONE DETECTED); Urine Protein/Creatinine Ratio 0.104 (0.022-0.128)
== END 2020-11-01 17:34 | disposition home or self-care (01) | DRG 287 ==
LOC: 2N 08:31 → ED 08:31 → SUATTDRO 11:26 → 2N 14:28 → 2S 10-30 15:24